=== PATIENT | female | born 1960 | race Caucasian/White ===

== ENCOUNTER → 2017-07-19 | Outpatient (CLI) | payer MEDICARE, MEDICAID ==
[~2017-07-19] MED LIST: ASPIR 8181 MG PO; CELEXA40 MG; CELEXA40 MG PO; CHANTIX1 EACH PO; CIPROFLOXACIN500 M1 PO; CLEOCIN HCL150 MG PO; CYMBALTA30 MG PO; CYMBALTA60 MG PO; DOXYCYCLINE 10100 M1 PO; DOXYCYCLINE 10100 MG PO; FLEXERIL PO; GLUCOPHAGE1000 MG; KEFLEX500 M1 PO; KLOR-CON M2020 MEQ PO; LASIX 40 MG TAB40 M2 PO; LIDODERM 5%1 PATC1 TOP; LORTAB 5 MG/5001 TA1 PO; METFORMIN 500500 MG PO; MOBIC7.5 MG PO; NEURONTIN 400400 M1; NEXIUM40 MG PO; NORCO 10-325 T1 EACH PO; PERCOCET 5-3251 EACH PO; PHENERGAN 25 MG25 M1 PO; PRILOSEC40 MG PO; PRINIVIL10 MG; PROAIR HFA8.5 GM IH; PSEUDOEPHEDRIN120 M1 PO; PYRIDIUM200 MG PO; RESTORIL15 MG PO; SIMVASTATIN40 MG; TRAMADOL 50 MG50 MG; TRAZODONE 100100 MG PO; TRAZODONE 150150 M1; XANAX 0.5 MG0.5 MG PO
== END ==
LOC: M.RAD 12:01
DX: J17 Pneumonia in diseases classified elsewhere (principal); J84.9 Interstitial pulmonary disease, unspecified; E11.8 Type 2 diabetes mellitus with unspecified complications; I45.9 Conduction disorder, unspecified; Z90.710 Acquired absence of both cervix and uterus; Z90.49 Acquired absence of other specified parts of digestive tract; Z96.641 Presence of right artificial hip joint

== ENCOUNTER 2017-09-20 19:50 | Emergency (ER) | payer MEDICARE, MEDICAID ==
[~2017-09-20] VITALS: Ht 162.6 cm; Wt 114.2 kg
[~2017-09-20 19:50] MED LIST changes: -ASPIR 8181 MG PO; -DOXYCYCLINE 10100 M1 PO; -KEFLEX500 M1 PO; -NORCO 10-325 T1 EACH PO; -PERCOCET 5-3251 EACH PO; -PSEUDOEPHEDRIN120 M1 PO
[2017-09-20] MEDS ORDERED: ASPIR 8181 MG PO (20:08)
[2017-09-20] MEDS ORDERED: NORCO 10-325 T1 EACH PO (20:09)
[2017-09-20] MEDS ORDERED: PSEUDOEPHEDRIN120 M1 PO (20:09)
[2017-09-20 20:50] LABS: ABSOLUTE BASOPHILS 0.1 thou/uL (0.0-0.2); ABSOLUTE EOSINOPHILS 0.3 thou/uL (0.0-0.7); ABSOLUTE LYMPHOCYTES 1.7 thou/uL (0.8-5.3); ABSOLUTE MONOCYTES 0.5 thou/uL (0.0-1.2); ABSOLUTE NEUTROPHILS 6.5 thou/uL (1.6-8.1); EOSINOPHILS 3.1 %; HEMATOCRIT 40.6 % (37.0-47.0); LYMPHOCYTES 18.8 %; MCHC 34.5 g/dL (28.0-37.0); MCV 92.8 fL (80.0-100.0); MONOCYTES 5.9 %; MPV 7.8 fl. (7.2-11.1); NUCLEATED RBCS 0 /100WBC; PLATELET COUNT* 302 thou/uL (150-400); POLYS 71.2 %; RBC 4.38 mil/uL (4.20-5.00); WBC 9.2 thou/uL (4.0-11.0)
[2017-09-20 21:03] LABS: CALCIUM 8.9 mg/dL (8.5-10.1); CREATININE 0.8 mg/dL (0.6-1.3); POTASSIUM 3.8 mmol/L (3.5-5.1)
[2017-09-20 21:07] LABS: TOTAL BILIRUBIN 0.2 mg/dL (<0.1-1.0); TOTAL PROTEIN 6.6 g/dL (6.4-8.2)
[2017-09-20] MEDS ORDERED: DOXYCYCLINE 10100 M1 PO (21:42)
[2017-09-20] MEDS ORDERED: KEFLEX500 M1 PO (21:44)
[2017-09-20] MEDS ORDERED: PERCOCET 5-3251 EACH PO (21:55)
[2017-09-20 22:32] VITALS: BP 103/63
== END 2017-09-20 22:33 | disposition home or self-care (01) ==
LOC: M.ERS 19:50
PROVIDERS: Nurse Practitioner Family
DX: L03.116 Cellulitis of left lower limb (principal); L03.115 Cellulitis of right lower limb; E11.9 Type 2 diabetes mellitus without complications; F17.210 Nicotine dependence, cigarettes, uncomplicated; J44.9 Chronic obstructive pulmonary disease, unspecified; Z91.040 Latex allergy status; Z90.710 Acquired absence of both cervix and uterus; Z88.1 Allergy status to other antibiotic agents; Z88.8 Allergy status to other drugs, medicaments and biological substances

== ENCOUNTER → 2017-10-07 | Outpatient (CLI) | payer MEDICARE, MEDICAID ==
[~2017-10-07] MED LIST changes: +ASPIR 8181 MG PO; +DOXYCYCLINE 10100 M1 PO; +KEFLEX500 M1 PO; +NORCO 10-325 T1 EACH PO; +PERCOCET 5-3251 EACH PO; +PSEUDOEPHEDRIN120 M1 PO
== END ==
LOC: M.NUC 10-02 08:42 → M.RAD 10-04 11:15 → M.NUC 10:15
DX: M79.604 Pain in right leg (principal); M79.605 Pain in left leg; M79.89 Other specified soft tissue disorders; E11.9 Type 2 diabetes mellitus without complications; M54.9 Dorsalgia, unspecified; F41.9 Anxiety disorder, unspecified; F33.1 Major depressive disorder, recurrent, moderate; R05 Cough; R60.0 Localized edema; Z87.891 Personal history of nicotine dependence

== ENCOUNTER 2020-02-14 11:59 | Emergency (ER) | payer MEDICARE, MEDICAID ==
[~2020-02-14] VITALS: Ht 162.6 cm; Wt 95.3 kg
[2020-02-14] MEDS ORDERED: NORCO 5-325 TA1 EAC2 PO (13:13)
[2020-02-14] MEDS ORDERED: NAPROSYN500 MG PO (13:14)
[2020-02-14 13:30] VITALS: BP 157/105
== END 2020-02-14 13:30 | disposition home or self-care (01) ==
LOC: M.ERS 11:59
DX: M25.551 Pain in right hip (principal); M25.552 Pain in left hip; M54.5 Low back pain; J44.9 Chronic obstructive pulmonary disease, unspecified; E11.9 Type 2 diabetes mellitus without complications; F17.210 Nicotine dependence, cigarettes, uncomplicated; Z91.040 Latex allergy status; Z88.2 Allergy status to sulfonamides; Z90.710 Acquired absence of both cervix and uterus; Z98.890 Other specified postprocedural states; Z90.89 Acquired absence of other organs

== ENCOUNTER 2021-02-05 18:34 | Inpatient (IN) | payer MEDICARE, MEDICAID ==
[~2021-02-05] VITALS: Ht 162.6 cm; Wt 94.8 kg
[2021-02-05 18:34] VITALS: BP 101/50
[~2021-02-05 18:34] MED LIST changes: -ASPIR 8181 MG PO; +BAYER CHEWABLE81 MG PO; -GLUCOPHAGE1000 MG; +METFORMIN HCL500 M1 PO; +NAPROSYN500 MG PO; +NORCO 5-325 TA1 EAC2 PO
[2021-02-05 19:22] LABS: HEMATOCRIT 45.9 % (37.0-47.0); HEMOGLOBIN 15.4 gm/dL (12.0-15.0); MCH 31.4 pg (26.0-34.0); MCHC 33.6 g/dL (28.0-37.0); MCV 93.5 fL (80.0-100.0); MPV 8.3 fl. (7.2-11.1); NUCLEATED RBCS 0 /100WBC; PLATELET COUNT* 117 thou/uL (150-400); RBC 4.91 mil/uL (4.20-5.00); RDW-CV 14.5 % (10.5-14.5); WBC 6.1 thou/uL (4.0-11.0)
[2021-02-05 19:29] LABS: CALCIUM 8.4 mg/dL (8.5-10.1); CREATININE 1.2 mg/dL (0.6-1.3); POTASSIUM 4.2 mmol/L (3.5-5.1)
[2021-02-05 19:39] LABS: ALBUMIN 2.5 g/dL (3.4-5.0); TOTAL BILIRUBIN 0.4 mg/dL (<0.1-1.0); TOTAL PROTEIN 6.4 g/dL (6.4-8.2)
[2021-02-05 19:50] LABS: ABSOLUTE EOSINOPHILS 0.1 thou/uL (0.0-0.7); ABSOLUTE LYMPHOCYTES 0.5 thou/uL (0.8-5.3); ABSOLUTE MONOCYTES 0.2 thou/uL (0.0-1.2); ABSOLUTE NEUTROPHILS 5.3 thou/uL (1.6-8.1); ATYPICAL LYMPHS 1 %; PLATELET ESTIMATE DECREASED
[2021-02-05 21:33] LABS: BE -4.4 mmol/L (-2 to +3); PCO2 46.5 mmHg (35.0-45.0); PO2 78.7 mmHg (75.0-100.0)
[2021-02-05 21:36] LABS: pH 7.297 (7.340-7.450)
[2021-02-05 22:50] VITALS: BP 131/80
[2021-02-06] VITALS (11 sets, daily range): BP systolic 125–147; BP diastolic 65–95
--- NOTE | 2021-02-06 10:48 | EKG ---
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: [place] : 1960 Requested By: Massimo Hudson Order Number: [id number] MD: Bassam Choudhary Measurements Intervals [place] Rate: 97 P: 36 MA: 143 QRS: 18 QRSD: 91 T: 18 QT: 397 QTc: 505 Interpretive Statements Sinus rhythm Low voltage, precordial leads Abnormal R-wave progression, early transition Prolonged QT interval Baseline wander in lead(s) II,III,aVL,aVF,V1 Compared to ECG 07/22/2014 02:15:10 Low QRS voltage now present Prolonged QT interval now present Electronically Signed On 02-06-2021 10:48:08 CDT by Bassam Choudhary [email or web address] <ELECTRONICALLY SIGNED> By: Bassam Choudhary MD, [facility] 02/06/21 1048 29 29 Bassam Choudhary MD, [facility] /EPI
[2021-02-06 12:33] LABS: ABSOLUTE LYMPHOCYTES 0.4 thou/uL (0.8-5.3); ABSOLUTE MONOCYTES 0.4 thou/uL (0.0-1.2); ABSOLUTE NEUTROPHILS 5.7 thou/uL (1.6-8.1); BASOPHILS 0.2 %; HEMOGLOBIN 14.7 gm/dL (12.0-15.0); LYMPHOCYTES 6.4 %; MCH 31.2 pg (26.0-34.0); MCHC 33.4 g/dL (28.0-37.0); MCV 93.4 fL (80.0-100.0); MONOCYTES 6.8 %; MPV 7.9 fl. (7.2-11.1); NUCLEATED RBCS 0 /100WBC; PLATELET COUNT* 124 thou/uL (150-400); POLYS 86.6 %; RBC 4.72 mil/uL (4.20-5.00); RDW-CV 14.7 % (10.5-14.5); WBC 6.6 thou/uL (4.0-11.0)
[2021-02-06 12:52] LABS: CALCIUM 7.4 mg/dL (8.5-10.1); CREATININE 0.6 mg/dL (0.6-1.3); MAGNESIUM 1.9 mg/dL (1.8-2.4); POTASSIUM 4.3 mmol/L (3.5-5.1); TOTAL BILIRUBIN 0.2 mg/dL (<0.1-1.0); TOTAL PROTEIN 5.9 g/dL (6.4-8.2)
[2021-02-06 14:07] LABS: BE -8.7 mmol/L (-2 to +3); PCO2 35.8 mmHg (35.0-45.0)
[2021-02-06 14:11] LABS: PO2 133.2 mmHg (75.0-100.0); pH 7.293 (7.340-7.450)
--- NOTE | 2021-02-06 15:31 | 2DMMODE ---
[place] [address] 2 D/M-MODE ECHOCARDIOGRAM Name: HANNAH RHODES Room: [place] [address] ADM IN R.#: [id number] Admission: 02/05/21 Attend Phys: Brock Rivas Discharge: Date of : 56 Date of Service: 02/06/21 1530 Report #: [id number] THIS REPORT FOR: cc: Madyson Stewart,Bassam Cordon MD [facility] ~ APPROVED REPORT Study performed: 02/06/2021 14:01:22 EXAM: Comprehensive 2D, Doppler, and color-flow Echocardiogram Patient Location: In-Patient Room #: ER Status: routine BSA: 2.32 HR: 58 bpm BP: 122/94 mmHg Rhythm: NSR Other Information Study Quality: Good Indications Dyspnea 2D Dimensions IVSd: 11.33 (7-11mm) LVOT Diam: 21.65 (18-24mm) LVDd: 49.03 mm PWd: 8.02 (7-11mm) Ascending Ao: 31.64 (22-36mm) LVDs: 33.92 (25-40mm) Aortic Root: 24.31 mm Volumes Left Atrial Volume (Systole) LA ESV Index: 16.10 mL/m2 Aortic Valve AoV Peak Sabas.: 1.31 m/s AO Peak Gr.: 6.84 mmHg LVOT Max P.14 mmHg AO Mean Gr.: 3.38 mmHg LVOT Mean P.48 mmHg LVOT Max V: 1.24 m/s AO V2 VTI: 25.97 cm LVOT Mean V: 0.70 m/s LOU (VTI): 3.59 cm2 LVOT V1 VTI: 25.32 [place] [address] 2 D/M-MODE ECHOCARDIOGRAM Name: HANNAH RHODES Room: [address] IN ..#: [id number] Admission: 02/05/21 Attend Phys: Brock Rivas Discharge: Date of : 56 Date of Service: 02/06/21 1530 Report #: [id number] Mitral Valve E/A Ratio: 1.17 MV Decel. Time: 203.05 ms MV E Max Sabas.: 1.16 m/s MV PHT: 58.88 ms MVA (PHT): 3.74 cm2 TDI E/Lateral E': 11.60 E/Medial E': 12.89 Medial E' Sabas.: 0.09 m/s Lateral E' Sabas.: 0.10 m/s Pulmonary Valve PV Peak Sabas.: 0.85 m/s PV Peak Gr.: 2.87 mmHg Tricuspid Valve RAP Estimate: 5.00 mmHg TR Peak Gr.: 29.18 mmHg RVSP: 34.00 mmHg PA Pressure: 34.00 mmHg Left Ventricle The left ventricle is normal size. There is normal LV segmental wall motion. There is normal left ventricular wall thickness. Left ventricular systolic function is normal. The left ventricular ejection fraction is within the normal range. LVEF is 55-60%. The left ventricular diastolic function is normal. Right Ventricle The right ventricle is normal size. The right ventricular systolic function is normal. Atria The left atrium size is normal. The right atrium size is normal. Aortic Valve The aortic valve is normal in structure. No aortic regurgitation is present. There is no aortic valvular stenosis. Mitral Valve The mitral valve is normal in structure. Trace mitral regurgitation. No evidence of mitral valve stenosis. Tricuspid Valve The tricuspid valve is normal in structure. [place] [address] 2 D/M-MODE ECHOCARDIOGRAM Name: HANNAH RHODES Room: [address] IN [facility]#: [id number] Admission: 02/05/21 Attend Phys: Brock Rivas Discharge: Date of : 56 Date of Service: 02/06/21 1530 Report #: [id number] Pulmonic Valve Pulmonic valve is not well visualized. There is no pulmonic valvular regurgitation. Great Vessels The aortic root is normal in size. IVC is normal in size and collapses >50% with inspiration. Pericardium There is no pericardial effusion. <Conclusion> Left ventricular systolic function is normal. The left ventricular ejection fraction is within the normal range. <ELECTRONICALLY SIGNED> By: Bassam Choudhary MD, FACC 02/06/21 1530 1530 1530 Bassam Choudhary MD, FACC /INF
[2021-02-06 15:40] LABS: ANION GAP 9 mmol/L (7-16); BUN 15 mg/dL (7-18); CALCIUM 7.4 mg/dL (8.5-10.1); CHLORIDE 106 mmol/L (98-107); CO2 23 mmol/L (21-32); CREATININE 0.7 mg/dL (0.6-1.3); GLUCOSE 257 mg/dL (70-99); POTASSIUM 4.4 mmol/L (3.5-5.1); SODIUM 138 mmol/L (136-145)
[2021-02-07] VITALS (24 sets, daily range): BP systolic 100–155; BP diastolic 54–82
[2021-02-07 04:48] LABS: ABSOLUTE LYMPHOCYTES 0.3 thou/uL (0.8-5.3); ABSOLUTE MONOCYTES 0.7 thou/uL (0.0-1.2); ABSOLUTE NEUTROPHILS 4.6 thou/uL (1.6-8.1); BASOPHILS 0.2 %; HEMATOCRIT 42.1 % (37.0-47.0); HEMOGLOBIN 14.2 gm/dL (12.0-15.0); LYMPHOCYTES 5.6 %; MCH 31.5 pg (26.0-34.0); MCHC 33.8 g/dL (28.0-37.0); MCV 93.2 fL (80.0-100.0); MONOCYTES 11.8 %; NUCLEATED RBCS 0 /100WBC; PLATELET COUNT* 114 thou/uL (150-400); POLYS 82.4 %; RBC 4.51 mil/uL (4.20-5.00); RDW-CV 14.5 % (10.5-14.5); WBC 5.6 thou/uL (4.0-11.0)
[2021-02-07 06:00] LABS: CALCIUM 7.8 mg/dL (8.5-10.1); CREATININE 0.8 mg/dL (0.6-1.3); MAGNESIUM 2.1 mg/dL (1.8-2.4); POTASSIUM 4.7 mmol/L (3.5-5.1); TOTAL BILIRUBIN 0.2 mg/dL (<0.1-1.0); TOTAL PROTEIN 5.6 g/dL (6.4-8.2)
[2021-02-07 12:02] LABS: BE -4.1 mmol/L (-2 to +3); PCO2 29.8 mmHg (35.0-45.0); PO2 67.3 mmHg (75.0-100.0); pH 7.421 (7.340-7.450)
--- NOTE | 2021-02-07 20:33 | CON ---
[address] [address] CONSULTATION Name: HANNAH RHODES Room: [address] IN M.R.#: [id number] Admission: 02/05/21 Attend Phys: Denise Alvarez Discharge: Date of : 56 Report #: [id number] THIS REPORT FOR: cc: Madyson Stewart,Garertt Mitchell MD ~ DATE OF CONSULTATION: 02/06/2021 REQUESTING PHYSICIAN: Dr. Clayton. INDICATION FOR CONSULTATION: Acute hypoxemic respiratory failure secondary to COVID-19. HISTORY OF PRESENT ILLNESS: A 61-year-old female who has an extensive history of smoking. She is still currently smoking. She does not carry a previous diagnosis of COPD. Also, has a body mass index of 52 and appears to me that she has underlying obstructive sleep apnea, also not previously diagnosed, now presented with increasing shortness of breath, cough and some sputum production. Details not available. Over the last week, there is mild swelling of lower extremities. There is no calf pain. The patient was markedly hypoxemic with O2 saturation in the range of 60% initially recorded. Currently, she is on a BiPAP 100% FIO2 to maintain O2 saturation, O2 saturation last recorded in the low 90s. The patient is extremely anxious and is repeatedly checking the BiPAP off. She does appear to be oxygenating adequately when BiPAP is in place. Respiratory rate, however, remains elevated. The patient is very anxious and therefore is unable to provide a further history or review of systems. PAST MEDICAL HISTORY: Morbid obesity, body mass index 52, with suspected underlying obstructive sleep apnea, spinal stenosis. She has used narcotics in the past at home prescribed to her, unknown as to whether the use is current, diabetes, tonsillectomy, , hysterectomy, heel spur, right knee surgery, carpal tunnel surgery. SOCIAL HISTORY: There is an extensive history of smoking, still smokes. ALLERGIES: ADHESIVE, LATEX AND SULFONAMIDE ANTIBIOTICS. FAMILY HISTORY: No pertinent family history. IMMUNIZATION HISTORY: The patient has not been vaccinated for COVID-19. PHYSICAL EXAMINATION: GENERAL: She is alert, awake and oriented; however, is extremely anxious. VITAL SIGNS: Has a pulse of 90 and a blood pressure 122/94. She was having respiratory rate in the mid 30s with 100% FIO2 and the BiPAP 20/10 [place] [address] CONSULTATION Name: HANNAH RHODES Room: [address] IN [facility]#: [id number] Admission: 02/05/21 Attend Phys: Denise Alvarez Discharge: Date of : 56 Report #: [id number] switched over to AVAPS mode. She is afebrile with a temperature of 36.9. HEENT: Normocephalic and atraumatic. Pupils are equal and reactive. Throat examination is limited with the BiPAP in place. NECK: Does not show raised JVP asymmetry, mass or lymph nodes. CHEST: Symmetrical expansion on inspection and palpation. On auscultation, breath sounds are significantly decreased bilaterally equal. I do not hear any added sounds. HEART: Regular, no murmur. ABDOMEN: Soft and nontender. EXTREMITIES: Lower extremities, 1+ edema, no calf tenderness. SKIN: Dry and intact. NEUROLOGIC: Moves all extremities bilaterally equally and spontaneously with no focal deficit identified. LABORATORY DATA: The patient's chest x-rays are consistent with ARDS secondary to COVID-19. ASSESSMENT AND PLAN: 1. Acute hypoxemic respiratory failure. For now, we will keep her on BiPAP. Agree with starting Precedex. Agree with obtaining a central line. Hopefully, the patient says that she can be controlled with Precedex if this is not the case that she may require endotracheal intubation bypass over to AVAPS mode. She was doing very high tidal volumes on . Therefore, I am starting with a high tidal volume of 600. We will adjust based on response. 2. COVID-19 with acute respiratory distress syndrome. She likely also has underlying chronic obstructive pulmonary disease. Therefore, we will start with a larger dose of dexamethasone, nebulized bronchodilators are also ordered. Agree with remdesivir. There are different opinions regarding whether or not convalescent plasma should also be administered. I would defer to the primary service. I recommend giving her Actemra, unfortunately Actemra currently is not available. 3. Pulmonary infiltrates. We will also continue to cover with ceftriaxone and doxycycline as currently ordered except that I increased the dose of ceftriaxone nasal swab for methicillin-resistant Staphylococcus aureus and sputum culture. 4. Morbid obesity/suspected underlying obstructive sleep apnea, see discussion above. 5. Smoker/suspected underlying chronic obstructive pulmonary disease. See discussion above. 6. History of prescribe narcotic use, not known to me whether current or not, she; however, does take alprazolam at home. 7. Deep venous thrombosis prophylaxis. I increase Lovenox to intermediate dose. The patient is too unstable to do a CTA chest. We will do venous Dopplers as well as an echo. 8. Gastrointestinal prophylaxis, Protonix. [address] [address] CONSULTATION Name: HANNAH RHODES Room: [address]#: [id number] Admission: 02/05/21 Attend Phys: Denise Alvarez Discharge: Date of : 56 Report #: [id number] 9. Clostridium difficile prophylaxis, Lactinex. The patient is critically ill at this time. Total time spent providing critical care to this patient today is 43 minutes. <ELECTRONICALLY SIGNED> By: Garrett Palmer MD 02/07/21 2033 1043 1939Adior Palmer MD /nt
[2021-02-08] VITALS (51 sets, daily range): BP systolic 115–174; BP diastolic 53–82
[2021-02-08 06:16] LABS: HEMATOCRIT 40.8 % (37.0-47.0); HEMOGLOBIN 13.9 gm/dL (12.0-15.0); MCH 31.9 pg (26.0-34.0); MCHC 34.1 g/dL (28.0-37.0); MCV 93.4 fL (80.0-100.0); NUCLEATED RBCS 0 /100WBC; PLATELET COUNT* 111 thou/uL (150-400); RBC 4.36 mil/uL (4.20-5.00); RDW-CV 14.8 % (10.5-14.5); WBC 8.9 thou/uL (4.0-11.0)
[2021-02-08 06:34] LABS: PHOSPHORUS* 2.8 mg/dL (2.5-4.9)
[2021-02-08 06:38] LABS: ALBUMIN 2.5 g/dL (3.4-5.0); CALCIUM 8.2 mg/dL (8.5-10.1); MAGNESIUM 1.9 mg/dL (1.8-2.4); POTASSIUM 3.5 mmol/L (3.5-5.1); TOTAL BILIRUBIN 0.4 mg/dL (<0.1-1.0); TOTAL PROTEIN 6.3 g/dL (6.4-8.2)
[2021-02-08 07:42] LABS: ABSOLUTE LYMPHOCYTES 0.2 thou/uL (0.8-5.3); ABSOLUTE MONOCYTES 0.2 thou/uL (0.0-1.2); ABSOLUTE NEUTROPHILS 8.5 thou/uL (1.6-8.1); PLATELET ESTIMATE ADEQUATE
[2021-02-08 08:49] LABS: BE -1.8 mmol/L (-2 to +3); pH 7.387 (7.340-7.450)
[2021-02-08 08:51] LABS: PO2 143.7 mmHg (75.0-100.0)
[2021-02-09] VITALS (34 sets, daily range): BP systolic 112–168; BP diastolic 47–67
[2021-02-09 05:36] LABS: ABSOLUTE LYMPHOCYTES 0.2 thou/uL (0.8-5.3); ABSOLUTE MONOCYTES 0.8 thou/uL (0.0-1.2); ABSOLUTE NEUTROPHILS 8.5 thou/uL (1.6-8.1); BASOPHILS 0.1 %; HEMATOCRIT 38.5 % (37.0-47.0); HEMOGLOBIN 12.8 gm/dL (12.0-15.0); MCH 31.2 pg (26.0-34.0); MCHC 33.3 g/dL (28.0-37.0); MCV 93.5 fL (80.0-100.0); MONOCYTES 8.5 %; MPV 8.4 fl. (7.2-11.1); NUCLEATED RBCS 0 /100WBC; PLATELET COUNT* 118 thou/uL (150-400); POLYS 89.4 %; RBC 4.12 mil/uL (4.20-5.00); RDW-CV 14.5 % (10.5-14.5); WBC 9.5 thou/uL (4.0-11.0)
[2021-02-09 05:51] LABS: ALBUMIN 2.6 g/dL (3.4-5.0); CALCIUM 8.6 mg/dL (8.5-10.1); CREATININE 0.7 mg/dL (0.6-1.3); MAGNESIUM 2.4 mg/dL (1.8-2.4); POTASSIUM 4.1 mmol/L (3.5-5.1); TOTAL BILIRUBIN 0.3 mg/dL (<0.1-1.0); TOTAL PROTEIN 5.8 g/dL (6.4-8.2)
[2021-02-09 06:07] LABS: PHOSPHORUS* 2.5 mg/dL (2.5-4.9)
[2021-02-09 09:29] LABS: BE -0.3 mmol/L (-2 to +3); PCO2 45.6 mmHg (35.0-45.0); PO2 72.5 mmHg (75.0-100.0); pH 7.363 (7.340-7.450)
[2021-02-09 17:22] LABS: CREATININE 0.6 mg/dL (0.6-1.3); MAGNESIUM 2.1 mg/dL (1.8-2.4); POTASSIUM 3.8 mmol/L (3.5-5.1)
[2021-02-10] VITALS (22 sets, daily range): BP systolic 92–186; BP diastolic 69–90
[2021-02-10 05:27] LABS: HEMATOCRIT 37.9 % (37.0-47.0); HEMOGLOBIN 12.6 gm/dL (12.0-15.0); MCH 30.9 pg (26.0-34.0); MCHC 33.1 g/dL (28.0-37.0); MCV 93.4 fL (80.0-100.0); MPV 8.5 fl. (7.2-11.1); RBC 4.06 mil/uL (4.20-5.00); RDW-CV 14.9 % (10.5-14.5); WBC 10.5 thou/uL (4.0-11.0)
[2021-02-10 05:33] LABS: CALCIUM 8.7 mg/dL (8.5-10.1); CREATININE 0.7 mg/dL (0.6-1.3); POTASSIUM 4.4 mmol/L (3.5-5.1)
[2021-02-10 13:18] LABS: URINE BILIRUBIN NEGATIVE (Negative); URINE BLOOD 2+ (Negative); URINE CLARITY CLEAR; URINE COLOR YELLOW; URINE GLUCOSE-RANDOM NEGATIVE (Negative); URINE KETONES NEGATIVE (Negative); URINE LEUKOCYTES-REFLEX NEGATIVE (Negative); URINE NITRITE-REFLEX NEGATIVE (Negative); URINE PROTEIN 1+ (Negative); URINE SPECIFIC GRAVITY 1.015 (1.005-1.030); URINE UROBILINOGEN 0.2 E.U./dl (0.2-1.0)
[2021-02-10 13:27] LABS: BACTERIA-REFLEX 1-9 Few /HPF (None Seen); CASTS None Seen /LPF (None Seen); CRYSTALS None Seen /LPF (None Seen); SQUAMOUS 0-3 Few /LPF (0-3); URINE RBC 3-10 Few /HPF (0-2); URINE WBC-REFLEX 0-5 Rare /HPF (0-5)
[2021-02-10 18:01] LABS: CALCIUM 8.4 mg/dL (8.5-10.1); CREATININE 0.7 mg/dL (0.6-1.3); MAGNESIUM 1.7 mg/dL (1.8-2.4); POTASSIUM 4.8 mmol/L (3.5-5.1)
[2021-02-11] VITALS (70 sets, daily range): BP systolic 108–174; BP diastolic 68–103
[2021-02-11 07:10] LABS: ABSOLUTE LYMPHOCYTES 0.3 thou/uL (0.8-5.3); ABSOLUTE MONOCYTES 0.3 thou/uL (0.0-1.2); ABSOLUTE NEUTROPHILS 10.8 thou/uL (1.6-8.1); BASOPHILS 0.2 %; HEMATOCRIT 38.9 % (37.0-47.0); HEMOGLOBIN 12.7 gm/dL (12.0-15.0); LYMPHOCYTES 2.8 %; MCH 30.6 pg (26.0-34.0); MCHC 32.7 g/dL (28.0-37.0); MCV 93.6 fL (80.0-100.0); MONOCYTES 2.5 %; MPV 8.6 fl. (7.2-11.1); NUCLEATED RBCS 0 /100WBC; PLATELET COUNT* 85 thou/uL (150-400); POLYS 94.5 %; RBC 4.16 mil/uL (4.20-5.00); RDW-CV 14.9 % (10.5-14.5); WBC 11.5 thou/uL (4.0-11.0)
[2021-02-11 07:31] LABS: ALBUMIN 2.3 g/dL (3.4-5.0); CALCIUM 8.2 mg/dL (8.5-10.1); CREATININE 0.6 mg/dL (0.6-1.3); MAGNESIUM 1.9 mg/dL (1.8-2.4); POTASSIUM 4.7 mmol/L (3.5-5.1); TOTAL BILIRUBIN 0.5 mg/dL (<0.1-1.0); TOTAL PROTEIN 5.7 g/dL (6.4-8.2)
[2021-02-11 07:52] LABS: BE 1.7 mmol/L (-2 to +3); PCO2 45.7 mmHg (35.0-45.0); PO2 79.1 mmHg (75.0-100.0); pH 7.392 (7.340-7.450)
[2021-02-12] VITALS (72 sets, daily range): BP systolic 76–248; BP diastolic 51–189
[2021-02-12 05:27] LABS: BE 1.5 mmol/L (-2 to +3); PO2 98.2 mmHg (75.0-100.0); pH 7.387 (7.340-7.450)
[2021-02-12 06:56] LABS: HEMATOCRIT 38.4 % (37.0-47.0); HEMOGLOBIN 12.7 gm/dL (12.0-15.0); MCH 30.8 pg (26.0-34.0); MCHC 33.1 g/dL (28.0-37.0); MCV 93.2 fL (80.0-100.0); NUCLEATED RBCS 0 /100WBC; PLATELET COUNT* 81 thou/uL (150-400); RBC 4.12 mil/uL (4.20-5.00); RDW-CV 14.3 % (10.5-14.5); WBC 13.3 thou/uL (4.0-11.0)
[2021-02-12 07:29] LABS: CALCIUM 8.5 mg/dL (8.5-10.1); CREATININE 0.6 mg/dL (0.6-1.3); POTASSIUM 4.8 mmol/L (3.5-5.1); TOTAL BILIRUBIN 0.5 mg/dL (<0.1-1.0); TOTAL PROTEIN 5.7 g/dL (6.4-8.2)
[2021-02-12 07:42] LABS: ABSOLUTE LYMPHOCYTES 0.4 thou/uL (0.8-5.3); ABSOLUTE MONOCYTES 0.1 thou/uL (0.0-1.2); ABSOLUTE NEUTROPHILS 12.8 thou/uL (1.6-8.1); ANISOCYTOSIS 1+; ATYPICAL LYMPHS 1 %; PLATELET ESTIMATE DECREASED; POIKILOCYTOSIS 1+
[2021-02-13] VITALS (72 sets, daily range): BP systolic 115–170; BP diastolic 52–81
[2021-02-13 04:05] LABS: ABSOLUTE LYMPHOCYTES 0.1 thou/uL (0.8-5.3); ABSOLUTE MONOCYTES 0.2 thou/uL (0.0-1.2); ABSOLUTE NEUTROPHILS 11.7 thou/uL (1.6-8.1); BASOPHILS 0.1 %; HEMATOCRIT 34.9 % (37.0-47.0); HEMOGLOBIN 11.6 gm/dL (12.0-15.0); MCH 31.2 pg (26.0-34.0); MCHC 33.3 g/dL (28.0-37.0); MCV 93.7 fL (80.0-100.0); MONOCYTES 1.8 %; MPV 9.6 fl. (7.2-11.1); NUCLEATED RBCS 0 /100WBC; PLATELET COUNT* 81 thou/uL (150-400); POLYS 97.1 %; RBC 3.73 mil/uL (4.20-5.00); RDW-CV 14.6 % (10.5-14.5)
[2021-02-13 04:27] LABS: ALBUMIN 1.9 g/dL (3.4-5.0); CALCIUM 7.7 mg/dL (8.5-10.1); CREATININE 0.5 mg/dL (0.6-1.3); MAGNESIUM 1.7 mg/dL (1.8-2.4); PHOSPHORUS* 3.5 mg/dL (2.5-4.9); POTASSIUM 4.4 mmol/L (3.5-5.1); TOTAL BILIRUBIN 0.5 mg/dL (<0.1-1.0); TOTAL PROTEIN 5.3 g/dL (6.4-8.2)
[2021-02-13 08:05] LABS: PO2 68.7 mmHg (75.0-100.0); pH 7.361 (7.340-7.450)
[2021-02-13 08:12] LABS: PCO2 57.7 mmHg (35.0-45.0)
[2021-02-14] VITALS (58 sets, daily range): BP systolic 109–167; BP diastolic 54–80
[2021-02-14 07:27] LABS: ABSOLUTE LYMPHOCYTES 0.2 thou/uL (0.8-5.3); ABSOLUTE MONOCYTES 0.3 thou/uL (0.0-1.2); ABSOLUTE NEUTROPHILS 12.4 thou/uL (1.6-8.1); HEMATOCRIT 37.3 % (37.0-47.0); HEMOGLOBIN 12.3 gm/dL (12.0-15.0); LYMPHOCYTES 1.7 %; MCH 30.9 pg (26.0-34.0); MCV 93.7 fL (80.0-100.0); MONOCYTES 2.1 %; MPV 9.5 fl. (7.2-11.1); NUCLEATED RBCS 0 /100WBC; PLATELET COUNT* 107 thou/uL (150-400); POLYS 96.2 %; RBC 3.98 mil/uL (4.20-5.00); RDW-CV 14.3 % (10.5-14.5); WBC 12.9 thou/uL (4.0-11.0)
[2021-02-14 07:29] LABS: CALCIUM 8.5 mg/dL (8.5-10.1); CREATININE 0.5 mg/dL (0.6-1.3); POTASSIUM 4.6 mmol/L (3.5-5.1)
[2021-02-15] VITALS (24 sets, daily range): BP systolic 95–149; BP diastolic 48–73
[2021-02-15 05:53] LABS: HEMATOCRIT 37.2 % (37.0-47.0); HEMOGLOBIN 12.5 gm/dL (12.0-15.0); MCH 30.9 pg (26.0-34.0); MCHC 33.5 g/dL (28.0-37.0); MCV 92.2 fL (80.0-100.0); MPV 9.1 fl. (7.2-11.1); NUCLEATED RBCS 0 /100WBC; PLATELET COUNT* 138 thou/uL (150-400); RBC 4.03 mil/uL (4.20-5.00); RDW-CV 14.2 % (10.5-14.5); WBC 15.5 thou/uL (4.0-11.0)
[2021-02-15 06:17] LABS: PHOSPHORUS* 3.7 mg/dL (2.5-4.9)
[2021-02-15 06:22] LABS: ALBUMIN 1.7 g/dL (3.4-5.0); CALCIUM 8.5 mg/dL (8.5-10.1); CREATININE 0.5 mg/dL (0.6-1.3); MAGNESIUM 1.8 mg/dL (1.8-2.4); POTASSIUM 4.2 mmol/L (3.5-5.1); TOTAL BILIRUBIN 0.8 mg/dL (<0.1-1.0); TOTAL PROTEIN 5.4 g/dL (6.4-8.2)
[2021-02-15 06:24] LABS: ABSOLUTE BASOPHILS 0.2 thou/uL (0.0-0.2); ABSOLUTE LYMPHOCYTES 0.5 thou/uL (0.8-5.3); ABSOLUTE MONOCYTES 0.2 thou/uL (0.0-1.2); ABSOLUTE NEUTROPHILS 14.7 thou/uL (1.6-8.1); METAMYELOCYTES 1 %; MYELOCYTES 1 %; PLATELET ESTIMATE ADEQUATE
[2021-02-15 09:03] LABS: BE 11.9 mmol/L (-2 to +3); PCO2 48.9 mmHg (35.0-45.0); pH 7.495 (7.340-7.450)
[2021-02-15 09:06] LABS: PO2 52.5 mmHg (75.0-100.0)
[2021-02-15 20:45] LABS: CALCIUM 8.6 mg/dL (8.5-10.1); CREATININE 0.6 mg/dL (0.6-1.3); MAGNESIUM 2.3 mg/dL (1.8-2.4); POTASSIUM 4.1 mmol/L (3.5-5.1)
[2021-02-16] VITALS (24 sets, daily range): BP systolic 97–152; BP diastolic 48–63
[2021-02-16 06:27] LABS: HEMATOCRIT 33.4 % (37.0-47.0); HEMOGLOBIN 11.1 gm/dL (12.0-15.0); MCH 31.1 pg (26.0-34.0); MCHC 33.3 g/dL (28.0-37.0); MCV 93.4 fL (80.0-100.0); MPV 9.3 fl. (7.2-11.1); RBC 3.58 mil/uL (4.20-5.00); RDW-CV 14.1 % (10.5-14.5); WBC 14.4 thou/uL (4.0-11.0)
[2021-02-16 06:52] LABS: CALCIUM 8.6 mg/dL (8.5-10.1); CREATININE 0.6 mg/dL (0.6-1.3); POTASSIUM 3.9 mmol/L (3.5-5.1)
[2021-02-17] VITALS (30 sets, daily range): BP systolic 104–157; BP diastolic 50–73
[2021-02-17 04:26] LABS: ABSOLUTE LYMPHOCYTES 0.3 thou/uL (0.8-5.3); ABSOLUTE MONOCYTES 0.6 thou/uL (0.0-1.2); ABSOLUTE NEUTROPHILS 15.5 thou/uL (1.6-8.1); BASOPHILS 0.2 %; EOSINOPHILS 0.1 %; HEMATOCRIT 32.8 % (37.0-47.0); HEMOGLOBIN 11.2 gm/dL (12.0-15.0); LYMPHOCYTES 2.1 %; MCH 31.6 pg (26.0-34.0); MCV 92.9 fL (80.0-100.0); MONOCYTES 3.4 %; MPV 8.6 fl. (7.2-11.1); NUCLEATED RBCS 0 /100WBC; PLATELET COUNT* 177 thou/uL (150-400); POLYS 94.2 %; RBC 3.53 mil/uL (4.20-5.00); RDW-CV 13.8 % (10.5-14.5); WBC 16.5 thou/uL (4.0-11.0)
[2021-02-17 05:08] LABS: ALBUMIN 2.7 g/dL (3.4-5.0); CALCIUM 9.1 mg/dL (8.5-10.1); CREATININE 0.6 mg/dL (0.6-1.3); MAGNESIUM 1.9 mg/dL (1.8-2.4); POTASSIUM 4.3 mmol/L (3.5-5.1); TOTAL BILIRUBIN 0.9 mg/dL (<0.1-1.0); TOTAL PROTEIN 6.3 g/dL (6.4-8.2)
[2021-02-17 08:39] LABS: BE 3.4 mmol/L (-2 to +3); PCO2 43.4 mmHg (35.0-45.0); PO2 74.5 mmHg (75.0-100.0)
[2021-02-18] VITALS (96 sets, daily range): BP systolic 96–154; BP diastolic 52–81
[2021-02-18 04:07] LABS: HEMATOCRIT 33.1 % (37.0-47.0); HEMOGLOBIN 11.3 gm/dL (12.0-15.0); MCH 31.6 pg (26.0-34.0); MCV 92.8 fL (80.0-100.0); MPV 8.5 fl. (7.2-11.1); RBC 3.57 mil/uL (4.20-5.00); RDW-CV 14.2 % (10.5-14.5); WBC 17.9 thou/uL (4.0-11.0)
[2021-02-18 04:11] LABS: ALBUMIN 2.5 g/dL (3.4-5.0); CALCIUM 8.9 mg/dL (8.5-10.1); CREATININE 0.6 mg/dL (0.6-1.3); POTASSIUM 4.1 mmol/L (3.5-5.1); TOTAL BILIRUBIN 1.6 mg/dL (<0.1-1.0); TOTAL PROTEIN 6.2 g/dL (6.4-8.2)
[2021-02-18 04:27] LABS: HEMATOCRIT 33.6 % (37.0-47.0); HEMOGLOBIN 11.3 gm/dL (12.0-15.0); MCH 31.3 pg (26.0-34.0); MCHC 33.5 g/dL (28.0-37.0); MCV 93.4 fL (80.0-100.0); MPV 8.9 fl. (7.2-11.1); NUCLEATED RBCS 0 /100WBC; PLATELET COUNT* 214 thou/uL (150-400); RDW-CV 13.8 % (10.5-14.5); WBC 18.5 thou/uL (4.0-11.0)
[2021-02-18 06:49] LABS: ABSOLUTE EOSINOPHILS 0.4 thou/uL (0.0-0.7); ABSOLUTE LYMPHOCYTES 0.2 thou/uL (0.8-5.3); ABSOLUTE MONOCYTES 0.6 thou/uL (0.0-1.2); ABSOLUTE NEUTROPHILS 17.4 thou/uL (1.6-8.1)
[2021-02-18 06:50] LABS: PLATELET ESTIMATE ADEQUATE
[2021-02-18 08:41] LABS: BE 3.1 mmol/L (-2 to +3); PCO2 39.6 mmHg (35.0-45.0); PO2 61.7 mmHg (75.0-100.0); pH 7.454 (7.340-7.450)
[2021-02-19] VITALS (89 sets, daily range): BP systolic 119–158; BP diastolic 58–83
[2021-02-20] VITALS (32 sets, daily range): BP systolic 114–163; BP diastolic 55–85
[2021-02-20 09:30] LABS: BE 5.3 mmol/L (-2 to +3); PCO2 42.9 mmHg (35.0-45.0); PO2 64.8 mmHg (75.0-100.0); pH 7.458 (7.340-7.450)
[2021-02-20 10:38] LABS: ABSOLUTE LYMPHOCYTES 0.3 thou/uL (0.8-5.3); HEMOGLOBIN 11.3 gm/dL (12.0-15.0); NUCLEATED RBCS 0 /100WBC
[2021-02-20 10:40] LABS: ABSOLUTE BASOPHILS 0.1 thou/uL (0.0-0.2); ABSOLUTE MONOCYTES 0.9 thou/uL (0.0-1.2); ABSOLUTE NEUTROPHILS 13.6 thou/uL (1.6-8.1); BASOPHILS 0.6 %; HEMATOCRIT 34.2 % (37.0-47.0); MCH 30.8 pg (26.0-34.0); MCHC 32.9 g/dL (28.0-37.0); MCV 93.6 fL (80.0-100.0); MONOCYTES 6.3 %; MPV 8.2 fl. (7.2-11.1); PLATELET COUNT* 238 thou/uL (150-400); POLYS 91.1 %; RBC 3.66 mil/uL (4.20-5.00); WBC 14.9 thou/uL (4.0-11.0)
[2021-02-20 11:04] LABS: ALBUMIN 2.2 g/dL (3.4-5.0); CALCIUM 8.9 mg/dL (8.5-10.1); CREATININE 0.6 mg/dL (0.6-1.3); POTASSIUM 4.5 mmol/L (3.5-5.1); TOTAL BILIRUBIN 0.5 mg/dL (<0.1-1.0); TOTAL PROTEIN 5.5 g/dL (6.4-8.2)
[2021-02-21] VITALS (24 sets, daily range): BP systolic 116–151; BP diastolic 52–69
[2021-02-21 04:56] LABS: ABSOLUTE LYMPHOCYTES 0.4 thou/uL (0.8-5.3); ABSOLUTE MONOCYTES 0.9 thou/uL (0.0-1.2); ABSOLUTE NEUTROPHILS 13.6 thou/uL (1.6-8.1); BASOPHILS 0.2 %; HEMATOCRIT 31.5 % (37.0-47.0); HEMOGLOBIN 10.6 gm/dL (12.0-15.0); LYMPHOCYTES 2.5 %; MCH 31.7 pg (26.0-34.0); MCHC 33.5 g/dL (28.0-37.0); MCV 94.5 fL (80.0-100.0); MONOCYTES 6.2 %; MPV 8.6 fl. (7.2-11.1); NUCLEATED RBCS 0 /100WBC; PLATELET COUNT* 222 thou/uL (150-400); POLYS 91.1 %; RBC 3.33 mil/uL (4.20-5.00); RDW-CV 14.2 % (10.5-14.5)
[2021-02-21 09:06] LABS: BE 2.2 mmol/L (-2 to +3); PCO2 42.7 mmHg (35.0-45.0); PO2 72.2 mmHg (75.0-100.0); pH 7.419 (7.340-7.450)
[2021-02-21 13:30] LABS: ALBUMIN 2.4 g/dL (3.4-5.0); CALCIUM 8.4 mg/dL (8.5-10.1); CREATININE 0.8 mg/dL (0.6-1.3); MAGNESIUM 1.9 mg/dL (1.8-2.4); POTASSIUM 3.6 mmol/L (3.5-5.1); TOTAL BILIRUBIN 0.5 mg/dL (<0.1-1.0); TOTAL PROTEIN 5.8 g/dL (6.4-8.2)
[2021-02-22] VITALS (24 sets, daily range): BP systolic 118–157; BP diastolic 57–71
[2021-02-22 07:32] LABS: HEMATOCRIT 31.5 % (37.0-47.0); HEMOGLOBIN 10.6 gm/dL (12.0-15.0); MCH 31.7 pg (26.0-34.0); MCHC 33.5 g/dL (28.0-37.0); MCV 94.7 fL (80.0-100.0); MPV 8.7 fl. (7.2-11.1); RBC 3.33 mil/uL (4.20-5.00); RDW-CV 14.7 % (10.5-14.5); WBC 12.4 thou/uL (4.0-11.0)
[2021-02-22 07:41] LABS: ALBUMIN 2.4 g/dL (3.4-5.0); CALCIUM 8.5 mg/dL (8.5-10.1); CREATININE 0.6 mg/dL (0.6-1.3); MAGNESIUM 2.3 mg/dL (1.8-2.4); POTASSIUM 4.1 mmol/L (3.5-5.1); TOTAL BILIRUBIN 0.4 mg/dL (<0.1-1.0); TOTAL PROTEIN 5.3 g/dL (6.4-8.2)
[2021-02-22 17:48] LABS: CREATININE 0.7 mg/dL (0.6-1.3); MAGNESIUM 2.1 mg/dL (1.8-2.4)
[2021-02-23] VITALS (22 sets, daily range): BP systolic 118–151; BP diastolic 50–64
[2021-02-23 04:32] LABS: HEMOGLOBIN 10.7 gm/dL (12.0-15.0); MCH 31.1 pg (26.0-34.0); MCHC 33.5 g/dL (28.0-37.0); MCV 92.9 fL (80.0-100.0); MPV 8.3 fl. (7.2-11.1); NUCLEATED RBCS 0 /100WBC; PLATELET COUNT* 188 thou/uL (150-400); RBC 3.44 mil/uL (4.20-5.00); WBC 12.4 thou/uL (4.0-11.0)
[2021-02-23 04:47] LABS: PHOSPHORUS* 3.5 mg/dL (2.5-4.9)
[2021-02-23 04:48] LABS: ALBUMIN 2.8 g/dL (3.4-5.0); CALCIUM 8.7 mg/dL (8.5-10.1); CREATININE 0.6 mg/dL (0.6-1.3); POTASSIUM 4.1 mmol/L (3.5-5.1); TOTAL BILIRUBIN 0.5 mg/dL (<0.1-1.0); TOTAL PROTEIN 5.9 g/dL (6.4-8.2)
[2021-02-23 05:56] LABS: ABSOLUTE LYMPHOCYTES 0.1 thou/uL (0.8-5.3); ABSOLUTE MONOCYTES 0.5 thou/uL (0.0-1.2); ABSOLUTE NEUTROPHILS 11.8 thou/uL (1.6-8.1); ANISOCYTOSIS 1+; PLATELET ESTIMATE ADEQUATE; POIKILOCYTOSIS 1+
[2021-02-23 09:05] LABS: BE 2.6 mmol/L (-2 to +3); PO2 74.1 mmHg (75.0-100.0); pH 7.422 (7.340-7.450)
[2021-02-23 15:02] LABS: URINE BILIRUBIN NEGATIVE (Negative); URINE BLOOD 1+ (Negative); URINE CLARITY CLEAR; URINE COLOR YELLOW; URINE GLUCOSE-RANDOM NEGATIVE (Negative); URINE KETONES NEGATIVE (Negative); URINE LEUKOCYTES-REFLEX NEGATIVE (Negative); URINE NITRITE-REFLEX NEGATIVE (Negative); URINE PROTEIN NEGATIVE (Negative); URINE UROBILINOGEN 0.2 E.U./dl (0.2-1.0)
[2021-02-23 15:12] LABS: SQUAMOUS >10 Many /LPF (0-3)
[2021-02-23 15:13] LABS: BACTERIA-REFLEX 1-9 Few /HPF (None Seen); CRYSTALS None Seen /LPF (None Seen); HYALINE CASTS >10 Many /LPF (None Seen); MUCUS 4-6 Moderate strn/LPF (None Seen); URINE RBC 3-10 Few /HPF (0-2)
[2021-02-23 15:14] LABS: URINE WBC-REFLEX 0-5 Rare /HPF (0-5)
[2021-02-23 16:01] LABS: BE 5.1 mmol/L (-2 to +3); PCO2 38.1 mmHg (35.0-45.0); pH 7.493 (7.340-7.450)
[2021-02-23 17:10] LABS: CALCIUM 9.2 mg/dL (8.5-10.1); CREATININE 0.7 mg/dL (0.6-1.3); MAGNESIUM 1.9 mg/dL (1.8-2.4); POTASSIUM 3.8 mmol/L (3.5-5.1)
[2021-02-24] VITALS (59 sets, daily range): BP systolic 103–163; BP diastolic 49–76
[2021-02-24 03:54] LABS: ABSOLUTE LYMPHOCYTES 0.2 thou/uL (0.8-5.3); ABSOLUTE MONOCYTES 0.6 thou/uL (0.0-1.2); ABSOLUTE NEUTROPHILS 13.5 thou/uL (1.6-8.1); BASOPHILS 0.1 %; HEMATOCRIT 30.1 % (37.0-47.0); HEMOGLOBIN 10.2 gm/dL (12.0-15.0); LYMPHOCYTES 1.5 %; MCH 31.7 pg (26.0-34.0); MCV 93.2 fL (80.0-100.0); MONOCYTES 3.9 %; MPV 8.6 fl. (7.2-11.1); NUCLEATED RBCS 0 /100WBC; PLATELET COUNT* 204 thou/uL (150-400); POLYS 94.5 %; RBC 3.23 mil/uL (4.20-5.00); RDW-CV 14.1 % (10.5-14.5); WBC 14.3 thou/uL (4.0-11.0)
[2021-02-24 04:26] LABS: ALBUMIN 3.4 g/dL (3.4-5.0); CALCIUM 9.2 mg/dL (8.5-10.1); CREATININE 0.7 mg/dL (0.6-1.3); MAGNESIUM 1.9 mg/dL (1.8-2.4); POTASSIUM 4.5 mmol/L (3.5-5.1); TOTAL BILIRUBIN 0.6 mg/dL (<0.1-1.0); TOTAL PROTEIN 6.3 g/dL (6.4-8.2)
[2021-02-24 18:50] LABS: CREATININE 0.7 mg/dL (0.6-1.3); MAGNESIUM 2.2 mg/dL (1.8-2.4); POTASSIUM 3.7 mmol/L (3.5-5.1)
[2021-02-25] VITALS (32 sets, daily range): BP systolic 102–154; BP diastolic 51–74
[2021-02-25 06:16] LABS: ABSOLUTE BASOPHILS 0.1 thou/uL (0.0-0.2); ABSOLUTE LYMPHOCYTES 0.3 thou/uL (0.8-5.3); ABSOLUTE MONOCYTES 0.6 thou/uL (0.0-1.2); ABSOLUTE NEUTROPHILS 15.2 thou/uL (1.6-8.1); BASOPHILS 0.3 %; HEMATOCRIT 32.4 % (37.0-47.0); HEMOGLOBIN 10.8 gm/dL (12.0-15.0); LYMPHOCYTES 1.6 %; MCH 31.3 pg (26.0-34.0); MCHC 33.3 g/dL (28.0-37.0); MONOCYTES 3.7 %; MPV 8.6 fl. (7.2-11.1); NUCLEATED RBCS 0 /100WBC; PLATELET COUNT* 233 thou/uL (150-400); POLYS 94.4 %; RBC 3.45 mil/uL (4.20-5.00); RDW-CV 13.8 % (10.5-14.5); WBC 16.1 thou/uL (4.0-11.0)
[2021-02-25 06:33] LABS: ALBUMIN 3.1 g/dL (3.4-5.0); CALCIUM 8.6 mg/dL (8.5-10.1); CREATININE 0.6 mg/dL (0.6-1.3); POTASSIUM 4.2 mmol/L (3.5-5.1); TOTAL BILIRUBIN 0.6 mg/dL (<0.1-1.0)
[2021-02-25 06:36] LABS: LIPASE 374 U/L (73-393); TRIGLYCERIDE 225 mg/dL (<150)
[2021-02-25 09:37] LABS: BE 6.7 mmol/L (-2 to +3); PCO2 44.8 mmHg (35.0-45.0); pH 7.462 (7.340-7.450)
[2021-02-25 13:48] LABS: BE 7.3 mmol/L (-2 to +3); PCO2 38.5 mmHg (35.0-45.0); PO2 66.2 mmHg (75.0-100.0); pH 7.519 (7.340-7.450)
[2021-02-26] VITALS (42 sets, daily range): BP systolic 106–159; BP diastolic 58–82
[2021-02-26 06:52] LABS: HEMATOCRIT 46.6 % (37.0-47.0); MCV 90.9 fL (80.0-100.0); MPV 10.3 fl. (7.2-11.1); NUCLEATED RBCS 0 /100WBC; PLATELET COUNT* 201 thou/uL (150-400); RBC 5.13 mil/uL (4.20-5.00); RDW-CV 13.2 % (10.5-14.5)
[2021-02-26 07:06] LABS: HEMOGLOBIN 15.4 gm/dL (12.0-15.0); WBC 35.8 thou/uL (4.0-11.0)
[2021-02-26 07:26] LABS: ALBUMIN 3.2 g/dL (3.4-5.0); CALCIUM 9.2 mg/dL (8.5-10.1); CREATININE 0.5 mg/dL (0.6-1.3); POTASSIUM 3.6 mmol/L (3.5-5.1); TOTAL BILIRUBIN 0.8 mg/dL (<0.1-1.0); TOTAL PROTEIN 6.3 g/dL (6.4-8.2)
[2021-02-26 07:41] LABS: ABSOLUTE LYMPHOCYTES 0.4 thou/uL (0.8-5.3); ABSOLUTE MONOCYTES 1.1 thou/uL (0.0-1.2); ABSOLUTE NEUTROPHILS 34.4 thou/uL (1.6-8.1); PLATELET ESTIMATE ADEQUATE
[2021-02-26 14:32] LABS: BE 7.9 mmol/L (-2 to +3); PCO2 32.7 mmHg (35.0-45.0); pH 7.577 (7.340-7.450)
[2021-02-26 14:36] LABS: PO2 51.8 mmHg (75.0-100.0)
[2021-02-27] VITALS (51 sets, daily range): BP systolic 89–145; BP diastolic 36–82
[2021-02-27 05:45] LABS: ABSOLUTE BASOPHILS 0.1 thou/uL (0.0-0.2); ABSOLUTE EOSINOPHILS 0.1 thou/uL (0.0-0.7); ABSOLUTE LYMPHOCYTES 0.8 thou/uL (0.8-5.3); ABSOLUTE NEUTROPHILS 21.4 thou/uL (1.6-8.1); BASOPHILS 0.2 %; EOSINOPHILS 0.4 %; HEMATOCRIT 37.5 % (37.0-47.0); LYMPHOCYTES 3.4 %; MCH 31.5 pg (26.0-34.0); MCHC 33.6 g/dL (28.0-37.0); MCV 93.7 fL (80.0-100.0); MONOCYTES 4.4 %; MPV 8.5 fl. (7.2-11.1); NUCLEATED RBCS 0 /100WBC; POLYS 91.6 %; RDW-CV 14.2 % (10.5-14.5); WBC 23.3 thou/uL (4.0-11.0)
[2021-02-27 05:50] LABS: HEMOGLOBIN 12.6 gm/dL (12.0-15.0); PLATELET COUNT* 327 thou/uL (150-400)
[2021-02-27 06:04] LABS: PHOSPHORUS* 3.1 mg/dL (2.5-4.9)
[2021-02-27 06:18] LABS: ALBUMIN 3.5 g/dL (3.4-5.0); CALCIUM 9.4 mg/dL (8.5-10.1); CREATININE 0.7 mg/dL (0.6-1.3); MAGNESIUM 1.9 mg/dL (1.8-2.4); POTASSIUM 3.9 mmol/L (3.5-5.1); TOTAL PROTEIN 6.3 g/dL (6.4-8.2)
--- NOTE | 2021-02-27 17:31 | 2DMMODE ---
[facility] [address] [place] [address] 2 D/M-MODE ECHOCARDIOGRAM Name: HANNAH RHODES Room: 008-P ADM IN .R.#: [id number] Admission: 02/05/21 Attend Phys: Brock Rivas Discharge: Date of : 56 Date of Service: 02/27/21 1730 Report #: [id number] THIS REPORT FOR: cc: Madyson Stewart,Ashwin Richards MD [facility] ~ APPROVED REPORT Study performed: 02/27/2021 13:45:53 EXAM: Limited 2D Echocardiogram Patient Location: In-Patient Room #: 008 Status: routine BSA: 1.99 HR: 112 bpm BP: 140/76 mmHg Rhythm: NSR Indications RECHECK PA PRESSURE AND LVEF Left Ventricle The left ventricle is normal size. There is normal LV segmental wall motion. Mild concentric left ventricular hypertrophy. The left ventricular systolic function is normal. The left ventricular ejection fraction is within the normal range. LVEF is 60-65%. Right Ventricle The right ventricle is normal size. The right ventricular systolic function is normal. Atria The left atrium size is normal. The right atrium size is normal. Aortic Valve The aortic valve is normal in structure. Mitral Valve The mitral valve is normal in structure. Tricuspid Valve The tricuspid valve is normal in structure. Unable to assess PA pressure. [place] [address] 2 D/M-MODE ECHOCARDIOGRAM Name: HANNAH RHODES Room: [address] IN .R.#: [id number] Admission: 02/05/21 Attend Phys: Brock Rivas Discharge: Date of : 56 Date of Service: 02/27/211729 Report #: [id number] Great Vessels The aortic root is normal in size. IVC is normal in size and collapses >50% with inspiration. Pericardium There is no pericardial effusion. <Conclusion> The left ventricle is normal size. Mild concentric left ventricular hypertrophy. The left ventricular systolic function is normal. The left ventricular ejection fraction is within the normal range. LVEF is 60-65%. The right ventricle is normal size. The left atrium size is normal. The aortic valve is normal in structure. The mitral valve is normal in structure. The tricuspid valve is normal in structure. IVC is normal in size and collapses >50% with inspiration. There is no pericardial effusion. There is normal LV segmental wall motion. <ELECTRONICALLY SIGNED> By: Ashwin Hickman MD, [facility] 02/27/211729 29 1730 Ashwin Hickman MD, FACC /INF
[2021-02-28] VITALS (48 sets, daily range): BP systolic 79–129; BP diastolic 46–73
[2021-02-28 06:15] LABS: ABSOLUTE BASOPHILS 0.1 thou/uL (0.0-0.2); ABSOLUTE LYMPHOCYTES 0.4 thou/uL (0.8-5.3); ABSOLUTE MONOCYTES 0.6 thou/uL (0.0-1.2); ABSOLUTE NEUTROPHILS 12.7 thou/uL (1.6-8.1); BASOPHILS 0.4 %; EOSINOPHILS 0.1 %; HEMATOCRIT 33.5 % (37.0-47.0); HEMOGLOBIN 11.1 gm/dL (12.0-15.0); LYMPHOCYTES 2.6 %; MCH 32.1 pg (26.0-34.0); MCHC 33.3 g/dL (28.0-37.0); MCV 96.4 fL (80.0-100.0); MONOCYTES 4.4 %; MPV 8.3 fl. (7.2-11.1); NUCLEATED RBCS 0 /100WBC; POLYS 92.5 %; RBC 3.47 mil/uL (4.20-5.00); RDW-CV 15.1 % (10.5-14.5); WBC 13.7 thou/uL (4.0-11.0)
[2021-02-28 06:17] LABS: PLATELET COUNT* 211 thou/uL (150-400)
[2021-02-28 06:51] LABS: PHOSPHORUS* 3.8 mg/dL (2.5-4.9)
[2021-02-28 06:52] LABS: ALBUMIN 3.1 g/dL (3.4-5.0); CALCIUM 9.2 mg/dL (8.5-10.1); CREATININE 0.6 mg/dL (0.6-1.3); MAGNESIUM 2.7 mg/dL (1.8-2.4); POTASSIUM 3.9 mmol/L (3.5-5.1); TOTAL BILIRUBIN 0.7 mg/dL (<0.1-1.0); TOTAL PROTEIN 6.2 g/dL (6.4-8.2)
[2021-02-28 18:42] LABS: CALCIUM 9.4 mg/dL (8.5-10.1); CREATININE 0.7 mg/dL (0.6-1.3); MAGNESIUM 2.6 mg/dL (1.8-2.4); POTASSIUM 4.2 mmol/L (3.5-5.1)
[2021-03-01] VITALS (48 sets, daily range): BP systolic 80–132; BP diastolic 36–78
[2021-03-01 05:39] LABS: ABSOLUTE EOSINOPHILS 0.1 thou/uL (0.0-0.7); ABSOLUTE LYMPHOCYTES 0.7 thou/uL (0.8-5.3); ABSOLUTE MONOCYTES 0.7 thou/uL (0.0-1.2); ABSOLUTE NEUTROPHILS 12.4 thou/uL (1.6-8.1); BASOPHILS 0.2 %; HEMATOCRIT 32.7 % (37.0-47.0); HEMOGLOBIN 10.9 gm/dL (12.0-15.0); LYMPHOCYTES 5.1 %; MCH 31.8 pg (26.0-34.0); MCHC 33.2 g/dL (28.0-37.0); MCV 95.8 fL (80.0-100.0); MONOCYTES 4.7 %; MPV 8.1 fl. (7.2-11.1); NUCLEATED RBCS 0 /100WBC; PLATELET COUNT* 199 thou/uL (150-400); RBC 3.41 mil/uL (4.20-5.00); RDW-CV 14.6 % (10.5-14.5); WBC 13.9 thou/uL (4.0-11.0)
[2021-03-01 05:52] LABS: PHOSPHORUS* 3.4 mg/dL (2.5-4.9)
[2021-03-01 05:54] LABS: ALBUMIN 3.4 g/dL (3.4-5.0); CALCIUM 9.1 mg/dL (8.5-10.1); CREATININE 0.7 mg/dL (0.6-1.3); MAGNESIUM 2.5 mg/dL (1.8-2.4); POTASSIUM 4.2 mmol/L (3.5-5.1); TOTAL BILIRUBIN 0.6 mg/dL (<0.1-1.0); TOTAL PROTEIN 6.1 g/dL (6.4-8.2)
[2021-03-02] VITALS (29 sets, daily range): BP systolic 99–133; BP diastolic 45–78
[2021-03-02 06:09] LABS: HEMATOCRIT 33.9 % (37.0-47.0); HEMOGLOBIN 11.3 gm/dL (12.0-15.0); MCH 31.9 pg (26.0-34.0); MCHC 33.4 g/dL (28.0-37.0); MCV 95.5 fL (80.0-100.0); MPV 8.2 fl. (7.2-11.1); NUCLEATED RBCS 0 /100WBC; PLATELET COUNT* 166 thou/uL (150-400); RBC 3.55 mil/uL (4.20-5.00); RDW-CV 14.6 % (10.5-14.5); WBC 14.2 thou/uL (4.0-11.0)
[2021-03-02 06:32] LABS: PHOSPHORUS* 2.6 mg/dL (2.5-4.9)
[2021-03-02 06:36] LABS: ALBUMIN 3.1 g/dL (3.4-5.0); CALCIUM 8.4 mg/dL (8.5-10.1); CREATININE 0.7 mg/dL (0.6-1.3); MAGNESIUM 1.9 mg/dL (1.8-2.4); POTASSIUM 4.1 mmol/L (3.5-5.1); TOTAL BILIRUBIN 0.7 mg/dL (<0.1-1.0); TOTAL PROTEIN 5.3 g/dL (6.4-8.2)
[2021-03-02 07:32] LABS: ABSOLUTE LYMPHOCYTES 0.6 thou/uL (0.8-5.3); ABSOLUTE NEUTROPHILS 13.6 thou/uL (1.6-8.1); PLATELET ESTIMATE ADEQUATE
[2021-03-02] MEDS ORDERED: DECADRON6 MG PO (13:23)
[2021-03-02] MEDS ORDERED: XANAX 0.5 MG0.5 MG PO (13:23)
[2021-03-02] MEDS ORDERED: PULMICORT0.5 MG/2 M INH (13:23)
[2021-03-02] MEDS ORDERED: DOCUSATE S50 MG/5 ML PO (13:23)
== END 2021-03-02 15:25 | DRG 870 ==
LOC: M.ERS 18:34 → M.ORTHSURG 18:56 → M.TBA-ER 18:56 → M.ORTHSURG 02-06 17:45 → M.ICU 02-08 06:55
PROVIDERS: Emergency Medicine; Family Medicine; Internal Medicine; Internal Medicine Critical Care Medicine; Pediatrics; ADMIT Internal Medicine; ATTEND Internal Medicine
PROC: 5A09357 Assistance with Respiratory Ventilation, Less than 24 Consecutive Hours, Continuous Positive Airway Pressure (ICD-10-PCS; principal; 2021-02-05)
PROC: XW033E5 Introduction of Remdesivir Anti-infective into Peripheral Vein, Percutaneous Approach, New Technology Group 5 (ICD-10-PCS; 2021-02-06)
PROC: 5A1955Z Respiratory Ventilation, Greater than 96 Consecutive Hours (ICD-10-PCS; 2021-02-06)
PROC: 0BH17EZ Insertion of Endotracheal Airway into Trachea, Via Natural or Artificial Opening (ICD-10-PCS; 2021-02-06)
PROC: 02H633Z Insertion of Infusion Device into Right Atrium, Percutaneous Approach (ICD-10-PCS; 2021-02-06)
PROC: XW13325 Transfusion of Convalescent Plasma (Nonautologous) into Peripheral Vein, Percutaneous Approach, New Technology Group 5 (ICD-10-PCS; 2021-02-08)
PROC: 5A0935A Assistance with Respiratory Ventilation, Less than 24 Consecutive Hours, High Flow/Velocity Cannula (ICD-10-PCS; 2021-02-25)
PROC: 5A0935A Assistance with Respiratory Ventilation, Less than 24 Consecutive Hours, High Flow/Velocity Cannula (ICD-10-PCS; 2021-02-26)
PROC: 5A09357 Assistance with Respiratory Ventilation, Less than 24 Consecutive Hours, Continuous Positive Airway Pressure (ICD-10-PCS; 2021-02-26)
PROC: 5A0935A Assistance with Respiratory Ventilation, Less than 24 Consecutive Hours, High Flow/Velocity Cannula (ICD-10-PCS; 2021-02-27)
PROC: 5A09357 Assistance with Respiratory Ventilation, Less than 24 Consecutive Hours, Continuous Positive Airway Pressure (ICD-10-PCS; 2021-02-27)
PROC: 5A09357 Assistance with Respiratory Ventilation, Less than 24 Consecutive Hours, Continuous Positive Airway Pressure (ICD-10-PCS; 2021-02-28)
PROC: 5A0935A Assistance with Respiratory Ventilation, Less than 24 Consecutive Hours, High Flow/Velocity Cannula (ICD-10-PCS; 2021-02-28)
PROC: 5A09357 Assistance with Respiratory Ventilation, Less than 24 Consecutive Hours, Continuous Positive Airway Pressure (ICD-10-PCS; 2021-03-01)
PROC: 5A0935A Assistance with Respiratory Ventilation, Less than 24 Consecutive Hours, High Flow/Velocity Cannula (ICD-10-PCS; 2021-03-01)
PROC: 5A0935A Assistance with Respiratory Ventilation, Less than 24 Consecutive Hours, High Flow/Velocity Cannula (ICD-10-PCS; 2021-03-02)
PROC: 5A09357 Assistance with Respiratory Ventilation, Less than 24 Consecutive Hours, Continuous Positive Airway Pressure (ICD-10-PCS; 2021-03-02)
DX: A41.89 Other specified sepsis (principal); U07.1 COVID-19; J80 Acute respiratory distress syndrome; J12.82 Pneumonia due to coronavirus disease 2019; J44.0 Chronic obstructive pulmonary disease with (acute) lower respiratory infection; J44.1 Chronic obstructive pulmonary disease with (acute) exacerbation; E87.0 Hyperosmolality and hypernatremia; E46 Unspecified protein-calorie malnutrition; B44.9 Aspergillosis, unspecified; E11.9 Type 2 diabetes mellitus without complications; E66.01 Morbid (severe) obesity due to excess calories; F17.210 Nicotine dependence, cigarettes, uncomplicated; G47.33 Obstructive sleep apnea (adult) (pediatric); Z90.710 Acquired absence of both cervix and uterus; Z68.35 Body mass index [BMI] 35.0-35.9, adult; Z88.2 Allergy status to sulfonamides; Z88.8 Allergy status to other drugs, medicaments and biological substances; Z91.040 Latex allergy status

== ENCOUNTER 2021-03-31 06:11 | Inpatient (IN) | payer MEDICARE, MEDICAID ==
[~2021-03-31] VITALS: Ht 160 cm; Wt 78.6 kg
[~2021-03-31 06:11] MED LIST changes: +DECADRON6 MG PO; +DOCUSATE S50 MG/5 ML PO; +PULMICORT0.5 MG/2 M INH
[2021-03-31] MEDS ORDERED: ACETAMINOPHEN (06:33)
[2021-03-31] MEDS ORDERED: ALBUTEROL (06:33)
[2021-03-31] MEDS ORDERED: ENOXAPARIN60 MG/0.1 (06:34)
[2021-03-31] MEDS ORDERED: NEURONTIN 300M300 M2 (06:34)
[2021-03-31] MEDS ORDERED: NOVOLOG100 UNIT/1 (06:35)
[2021-03-31] MEDS ORDERED: ONDANSETRON ODT4 MG (06:36)
[2021-03-31] MEDS ORDERED: SENNA8.6 MG (06:37)
[2021-03-31] MEDS ORDERED: VFEND200 MG (06:37)
[2021-03-31 06:43] LABS: ABSOLUTE BASOPHILS 0.1 thou/uL (0.0-0.2); ABSOLUTE EOSINOPHILS 0.3 thou/uL (0.0-0.7); ABSOLUTE MONOCYTES 0.7 thou/uL (0.0-1.2); ABSOLUTE NEUTROPHILS 8.5 thou/uL (1.6-8.1); BASOPHILS 0.9 %; EOSINOPHILS 3.1 %; LYMPHOCYTES 9.8 %; MCH 32.8 pg (26.0-34.0); MCHC 33.3 g/dL (28.0-37.0); MCV 98.4 fL (80.0-100.0); MONOCYTES 6.3 %; MPV 7.7 fl. (7.2-11.1); NUCLEATED RBCS 1 /100WBC; PLATELET COUNT* 386 thou/uL (150-400); POLYS 79.9 %; RBC 3.35 mil/uL (4.20-5.00); RDW-CV 17.1 % (10.5-14.5); WBC 10.7 thou/uL (4.0-11.0)
[2021-03-31 06:50] LABS: BE -3.9 mmol/L (-2 to +3); PCO2 36.8 mmHg (35.0-45.0); PO2 68.3 mmHg (75.0-100.0); pH 7.369 (7.340-7.450)
[2021-03-31 06:51] LABS: CALCIUM 8.4 mg/dL (8.5-10.1); CREATININE 0.5 mg/dL (0.6-1.3); POTASSIUM 3.7 mmol/L (3.5-5.1)
[2021-03-31 07:02] LABS: TOTAL BILIRUBIN 0.3 mg/dL (<0.1-1.0); TOTAL PROTEIN 5.8 g/dL (6.4-8.2)
[2021-03-31 07:26] LABS: ICTOTEST (BILI CONFIRMATORY) Negative (Negative); URINE BILIRUBIN 1+ (Negative); URINE BLOOD 3+ (Negative); URINE CLARITY CLEAR; URINE COLOR YELLOW; URINE GLUCOSE-RANDOM NEGATIVE (Negative); URINE KETONES TRACE (Negative); URINE LEUKOCYTES-REFLEX TRACE (Negative); URINE NITRITE-REFLEX NEGATIVE (Negative); URINE PROTEIN 1+ (Negative); URINE SPECIFIC GRAVITY 1.025 (1.005-1.030)
[2021-03-31 07:29] LABS: ALBUMIN 1.9 g/dL (3.4-5.0)
[2021-03-31 07:50] LABS: BACTERIA-REFLEX 1-9 Few /HPF (None Seen); CRYSTALS None Seen /LPF (None Seen); HYALINE CASTS 4-10 Moderate /LPF (None Seen); MUCUS None Seen strn/LPF (None Seen); SQUAMOUS 4-10 Moderate /LPF (0-3); URINE RBC >20 Many /HPF (0-2); URINE WBC-REFLEX 0-5 Rare /HPF (0-5)
[2021-03-31 11:09] VITALS: BP 94/50
--- NOTE | 2021-03-31 11:16 | EKG ---
[place] [address] ELECTROCARDIOGRAM REPORT Name: ILIANAGILMERHANNAH [place] Room: [place] [address] ADM IN ..#: [id number] Admission: 03/31/21 Attend Phys: Keily Clayton, Discharge: Date of : 56 Date of Service: 03/31/2114 Report #: [id number] THIS REPORT FOR: //name// [facility] ED Test Date: 2021-03-31 Test Time: 06:14:44 Pat Name: HANNAH RHODES Department: Room: [facility] Gender: F Senior Project Coordinator: MR : 1960 Requested By: Silvia Sadler Order Number: [id number] MD: Bassam Choudhary Measurements Intervals [place] Rate: 107 P: 45 CA: 141 QRS: 26 QRSD: 108 T: -3 QT: 350 QTc: 467 Interpretive Statements Sinus tachycardia Probable left atrial enlargement Low voltage, precordial leads RSR' in V1 or V2, right VCD or RVH Borderline T abnormalities, diffuse leads Compared to ECG 02/05/2021 19:30:44 Sinus rhythm no longer present Prolonged QT interval no longer present Electronically Signed On 03-31-2021 11:16:36 CDT by Bassam Choudhary [email or web address] <ELECTRONICALLY SIGNED> By: Bassam Choudhary MD, [facility] 03/31/21 1116 3 3 Bassam Choudhary MD, [facility] /EPI
[2021-03-31 11:30] VITALS: BP 96/78
--- NOTE | 2021-03-31 15:00 | CON ---
[address] [address] CONSULTATION Name: HANNAH RHODES Room: [address] IN M.R.#: [id number] Admission: 03/31/21 Attend Phys: Keily Clayton MD Discharge: Date of : 56 Report #: [id number] THIS REPORT FOR: cc: Madyson Stewart,Bassam Cordon MD [facility] ~ DATE OF CONSULTATION: 03/31/2021 CARDIOLOGY CONSULTATION HISTORY OF PRESENT ILLNESS: The patient is a 61-year-old white female who I was asked to see in the hospital today after she was noted to have an abnormal troponin. Unfortunately, the patient currently has CPAP. She does not respond to voice. There are no family members available. The patient has been hospitalized here at [facility] in the past. She was here in 02/2021 with COVID pneumonia. She was here for several days. She is felt to have sleep apnea. She was eventually transferred to long-term care facility on 02/05 after being here for almost a month. The patient was brought back to the emergency room this morning by ambulance. Apparently, she was short of breath with agonal breathing at the rehab facility. Saturation of oxygen was low. She was placed on BiPAP. She was noted to have an abnormal troponin. Cardiology consultation requested. PAST MEDICAL HISTORY: She had a previous history of DVT at [facility]. She had a right knee arthroscopy, hysterectomy, tonsillectomy. She has a history of diabetes. MEDICATIONS: Her medications at a long-term care facility consisted of metformin, Neurontin, insulin. ALLERGIES: SHE HAS AN ALLERGY TO SULFA DRUGS. SOCIAL HISTORY: Apparently, she is a smoker. REVIEW OF SYSTEMS: No history of stroke, liver disease, kidney disease, cancer, psychiatric illness. PHYSICAL EXAMINATION: GENERAL: Revealed an overweight, middle-aged female, lying in bed. She appeared in no acute distress. She had BiPAP in place. She would not respond to voice. VITAL SIGNS: She had blood pressure of 100/60, pulse is 90. She was afebrile. HEENT: She was anicteric. Conjunctivae are pink. Mucosa is moist. NECK: Supple. No jugular vein distention. CHEST: [place] [address] CONSULTATION Name: HANNAH RHODES Room: [address]#: [id number] Admission: 03/31/21 Attend Phys: Keily Clayton MD Discharge: Date of : 56 Report #: [id number] HEART: Regular rate and rhythm. ABDOMEN: Obese. EXTREMITIES: Had no pitting edema. SKIN: Cool and dry. NEUROLOGIC: She would not follow commands. LABORATORY DATA: ECG on admission showed a sinus tachycardia with an incomplete right bundle branch block. She actually had an echocardiogram done in 01/2021 while the patient was admitted with COVID-19 that showed an ejection fraction of 60% with left ventricular hypertrophy. The patient had a portable chest x-ray this morning that showed mild cardiomegaly, bilateral infiltrates. There appeared to be consolidation. The patient actually had a CT scan of the head last month here at [facility] that showed no acute abnormality. LABORATORY WORK: Sodium 135, creatinine 0.5, albumin is only 1.9. High sensitivity troponin was 59. BNP 762. Hematocrit 33. Her COVID antigen stat test was negative. Urinalysis, 1+ protein, trace leukocytes, many rbc's. IMPRESSION AND RECOMMENDATIONS: 1. Borderline troponin. No history of angina. No EKG changes. Recommend no further cardiac evaluation. 2. Pneumonia. 3. Sleep apnea. 4. Recent COVID-19. 5. Anemia. 6. Chronic edema. Suspect venous insufficiency. 7. Obesity. 8. Diabetes. <ELECTRONICALLY SIGNED> By: Bassam Choudhary MD, FACC 03/31/21 1500 1157 1213Dbilly Choudhary MD, FACC /nt
[2021-03-31 16:00] VITALS: BP 104/61
[2021-03-31 20:44] VITALS: BP 116/71
[2021-04-01] VITALS (13 sets, daily range): BP systolic 114–163; BP diastolic 66–92
[2021-04-01 03:15] LABS: HEMATOCRIT 31.6 % (37.0-47.0); HEMOGLOBIN 10.6 gm/dL (12.0-15.0); MCH 32.8 pg (26.0-34.0); MCHC 33.5 g/dL (28.0-37.0); MPV 7.3 fl. (7.2-11.1); NUCLEATED RBCS 0 /100WBC; PLATELET COUNT* 409 thou/uL (150-400); RBC 3.23 mil/uL (4.20-5.00); RDW-CV 17.3 % (10.5-14.5); WBC 9.5 thou/uL (4.0-11.0)
[2021-04-01 03:34] LABS: APTT 28.9 Seconds (25.0-31.3); PROTIME 10.9 Seconds (9.20-11.50)
[2021-04-01 03:43] LABS: ALBUMIN 1.8 g/dL (3.4-5.0); CALCIUM 8.4 mg/dL (8.5-10.1); CREATININE 0.5 mg/dL (0.6-1.3); MAGNESIUM 2.3 mg/dL (1.8-2.4); POTASSIUM 4.2 mmol/L (3.5-5.1); TOTAL BILIRUBIN 0.2 mg/dL (<0.1-1.0); TOTAL PROTEIN 6.2 g/dL (6.4-8.2)
[2021-04-01 06:15] LABS: ABSOLUTE LYMPHOCYTES 0.7 thou/uL (0.8-5.3); ABSOLUTE MONOCYTES 0.2 thou/uL (0.0-1.2); ABSOLUTE NEUTROPHILS 8.6 thou/uL (1.6-8.1); CLUMPED PLTS FEW; PLATELET ESTIMATE INCREASED
[2021-04-01 06:16] LABS: ANISOCYTOSIS 1+; LARGE PLATELETS OCCASIONAL; POLYCHROMASIA 1+
[2021-04-01 20:16] LABS: BE 1.7 mmol/L (-2 to +3); PCO2 49.9 mmHg (35.0-45.0); pH 7.363 (7.340-7.450)
[2021-04-01 20:21] LABS: PO2 57.9 mmHg (75.0-100.0)
[2021-04-01 21:53] LABS: BE 3.8 mmol/L (-2 to +3); PCO2 47.7 mmHg (35.0-45.0); PO2 70.1 mmHg (75.0-100.0); pH 7.404 (7.340-7.450)
[2021-04-02] VITALS (111 sets, daily range): BP systolic 73–210; BP diastolic 40–108
[2021-04-02 05:07] LABS: ALBUMIN 2.2 g/dL (3.4-5.0); CREATININE 0.5 mg/dL (0.6-1.3); MAGNESIUM 1.7 mg/dL (1.8-2.4); POTASSIUM 3.8 mmol/L (3.5-5.1); TOTAL BILIRUBIN 0.3 mg/dL (<0.1-1.0)
[2021-04-02 05:50] LABS: HEMATOCRIT 30.2 % (37.0-47.0); HEMOGLOBIN 10.1 gm/dL (12.0-15.0); MCH 32.9 pg (26.0-34.0); MCHC 33.6 g/dL (28.0-37.0); MPV 7.6 fl. (7.2-11.1); RBC 3.08 mil/uL (4.20-5.00); RDW-CV 17.1 % (10.5-14.5); WBC 13.2 thou/uL (4.0-11.0)
[2021-04-02 09:33] LABS: BE 5.1 mmol/L (-2 to +3); PCO2 41.6 mmHg (35.0-45.0); pH 7.465 (7.340-7.450)
[2021-04-02 09:35] LABS: PO2 50.6 mmHg (75.0-100.0)
[2021-04-02 15:28] LABS: BE -1.1 mmol/L (-2 to +3); PO2 73.5 mmHg (75.0-100.0)
[2021-04-02 15:33] LABS: PCO2 56.2 mmHg (35.0-45.0); pH 7.287 (7.340-7.450)
[2021-04-02 17:22] LABS: BE 6.2 mmol/L (-2 to +3); PCO2 48.9 mmHg (35.0-45.0); PO2 72.5 mmHg (75.0-100.0); pH 7.427 (7.340-7.450)
[2021-04-03] VITALS (26 sets, daily range): BP systolic 109–162; BP diastolic 50–73
[2021-04-03 03:51] LABS: HEMATOCRIT 29.2 % (37.0-47.0); HEMOGLOBIN 9.8 gm/dL (12.0-15.0); MCH 33.2 pg (26.0-34.0); MCHC 33.5 g/dL (28.0-37.0); MCV 98.9 fL (80.0-100.0); MPV 7.4 fl. (7.2-11.1); RBC 2.95 mil/uL (4.20-5.00); RDW-CV 17.6 % (10.5-14.5); WBC 10.1 thou/uL (4.0-11.0)
[2021-04-03 04:21] LABS: CALCIUM 8.9 mg/dL (8.5-10.1); CREATININE 0.4 mg/dL (0.6-1.3); MAGNESIUM 1.7 mg/dL (1.8-2.4); POTASSIUM 4.2 mmol/L (3.5-5.1); TOTAL BILIRUBIN 0.3 mg/dL (<0.1-1.0); TOTAL PROTEIN 5.8 g/dL (6.4-8.2)
[2021-04-03 07:53] LABS: BE 5.3 mmol/L (-2 to +3); PCO2 45.6 mmHg (35.0-45.0); pH 7.438 (7.340-7.450)
[2021-04-03 07:56] LABS: PO2 49.4 mmHg (75.0-100.0)
--- NOTE | 2021-04-03 16:20 | 2DMMODE ---
[place] [address] 2 D/M-MODE ECHOCARDIOGRAM Name: HANNAH RHODES Room: [facility] ADM IN .R.#: [id number] Admission: 03/31/21 Attend Phys: Keily Clayton, Discharge: Date of : 56 Date of Service: 04/03/21 1619 Report #: [id number] THIS REPORT FOR: cc: Madyson Stewart,Bassam Cordon MD [facility] ~ ADDENDUM APPROVED REPORT Study performed: 04/03/2021 15:45:01 EXAM: Limited 2D Echocardiogram and doppler study Patient Location: In-Patient Room #: 007 Status: routine BSA: 2.00 HR: 105 bpm BP: 123/49 mmHg Rhythm: NSR Indications Reassess PA systolic pressure, LVEF Tricuspid Valve RAP Estimate: 5.00 mmHg TR Peak Gr.: 30.43 mmHg RVSP: 35.00 mmHg PA Pressure: 35.00 mmHg Left Ventricle The left ventricle is normal size. There is normal LV segmental wall motion. Mild concentric left ventricular hypertrophy. The left ventricular systolic function is normal. The left ventricular ejection fraction is within the normal range. LVEF is 60-65%. Right Ventricle Right ventricle is dilated. Atria The left atrium size is normal. The right atrium size is normal. Aortic Valve The aortic valve is normal in structure. Mitral Valve The mitral valve is normal in structure. Mild mitral [address] [address] 2 D/M-MODE ECHOCARDIOGRAM Name: HANNAH RHODES Room: [address] IN .R.#: [id number] Admission: 03/31/21 Attend Phys: Keily Clayton, Discharge: Date of : 56 Date of Service: 04/03/211618 Report #: [id number] regurgitation. Tricuspid Valve The tricuspid valve is normal in structure. Mild tricuspid regurgitation. estimated pa pressure 35 mm hg Pulmonic Valve Pulmonic valve is not well visualized. Great Vessels The aortic root is normal in size. IVC is normal in size and collapses >50% with inspiration. Pericardium There is no pericardial effusion. <Conclusion> LVEF is 60-65%. There is no pericardial effusion. Mild tricuspid regurgitation. estimated pa pressure 35 mm hg <ELECTRONICALLY SIGNED> By: Bassam Choudhary MD, [facility] 04/03/211618 18 18 Bassam Choudhary MD, FACC /INF
[2021-04-03 16:59] LABS: CALCIUM 8.9 mg/dL (8.5-10.1); CREATININE 0.5 mg/dL (0.6-1.3); MAGNESIUM 1.7 mg/dL (1.8-2.4); POTASSIUM 3.6 mmol/L (3.5-5.1)
[2021-04-04] VITALS (44 sets, daily range): BP systolic 108–197; BP diastolic 47–87
[2021-04-04 05:02] LABS: HEMATOCRIT 28.5 % (37.0-47.0); HEMOGLOBIN 9.4 gm/dL (12.0-15.0); MCH 32.7 pg (26.0-34.0); MCHC 33.1 g/dL (28.0-37.0); MCV 98.6 fL (80.0-100.0); NUCLEATED RBCS 0 /100WBC; PLATELET COUNT* 260 thou/uL (150-400); RBC 2.89 mil/uL (4.20-5.00); WBC 9.7 thou/uL (4.0-11.0)
[2021-04-04 05:21] LABS: ALBUMIN 2.2 g/dL (3.4-5.0); CALCIUM 9.1 mg/dL (8.5-10.1); CREATININE 0.4 mg/dL (0.6-1.3); MAGNESIUM 1.9 mg/dL (1.8-2.4); POTASSIUM 4.4 mmol/L (3.5-5.1); TOTAL BILIRUBIN 0.3 mg/dL (<0.1-1.0); TOTAL PROTEIN 5.7 g/dL (6.4-8.2)
[2021-04-04 07:16] LABS: ABSOLUTE LYMPHOCYTES 0.3 thou/uL (0.8-5.3); ABSOLUTE MONOCYTES 0.6 thou/uL (0.0-1.2); ABSOLUTE NEUTROPHILS 8.8 thou/uL (1.6-8.1)
[2021-04-04 07:17] LABS: ANISOCYTOSIS 1+; PLATELET ESTIMATE ADEQUATE; POIKILOCYTOSIS 1+
[2021-04-04 08:47] LABS: BE 7.9 mmol/L (-2 to +3); PO2 65.2 mmHg (75.0-100.0); pH 7.408 (7.340-7.450)
[2021-04-04 15:39] LABS: INFLUENZA A ANTIGEN Negative (Negative); INFLUENZA B ANTIGEN Negative (Negative)
[2021-04-04 17:36] LABS: CALCIUM 9.1 mg/dL (8.5-10.1); CREATININE 0.5 mg/dL (0.6-1.3); MAGNESIUM 1.9 mg/dL (1.8-2.4); POTASSIUM 4.7 mmol/L (3.5-5.1)
--- NOTE | 2021-04-04 18:35 | CON ---
[address] [address] CONSULTATION Name: HANNAH RHODES Room: [address] ADM IN M.R.#: [id number] Admission: 03/31/21 Attend Phys: Keily Clayton MD Discharge: Date of : 56 Report #: [id number] THIS REPORT FOR: cc: Madyson Stewart,Garrett Mitchell MD ~ DATE OF CONSULTATION: 03/31/2021 REQUESTING PHYSICIAN: Consult has been requested by Dr. Clayton. INDICATION FOR CONSULTATION: Recurrent pneumonia. HISTORY OF PRESENT ILLNESS: This is a 61-year-old female. Past medical history is as mentioned below. She was only recently discharged from our hospital and I did take care of her during the previous hospitalization. She was transferred to an LTAC from our hospital towards the end of February. The patient at that time had been admitted with ARDS secondary to COVID-19. She was on the ventilator for several days; however, did not require a PEG or trach and we were able to extubate her. Based on clinical history, it appeared that she had previous COPD as well as obstructive sleep apnea, but these were not previously diagnosed. We did a culture Aspergillus fumigatus from her sputum. She was treated in addition to other antibiotics with voriconazole. She did have significant elevation in lipase/pancreatitis and the possibility that pancreatitis may have been secondary to voriconazole was considered. She went from our hospital to an LTAC, is now being transferred here from a long-term care facility which may not be the LTAC that we had transferred her to. Apparently, the patient started having increasing shortness of breath, was hypoxemic, dropped her blood pressure up to 77 systolic, due to agonal breathing was placed on BiPAP and transferred to our hospital. Initially, the patient was hypotensive. She did receive 2 liters of fluid. Blood pressure still remains on the lower side, it is around 94/55. She does have swelling of lower extremities. She, however, is currently stable on 40% FiO2 with BiPAP. She is fully awake. She is able to take orally. She does not report much sputum production, although says she has a cough. There are no recent upper respiratory complaints. She has had shingles, which is getting better. The patient is on a BiPAP and is able to provide a limited history and review of systems. REVIEW OF SYSTEMS: Review of systems for 12 points is negative, though with the exception of as mentioned above. PAST MEDICAL HISTORY: Recent admission to our hospital with ARDS secondary to COVID-19. The patient was on the ventilator, was successfully extubated and did not require a tracheostomy or PEG tube, pulmonary infiltrates [place] [address] CONSULTATION Name: HANNAH RHODES Room: [facility] IN M.R.#: [id number] Admission: 03/31/21 Attend Phys: Keily Clayton MD Discharge: Date of : 56 Report #: [id number] fumigatus cultured from her sputum during the last hospitalization, elevation in lipase/pancreatitis during the last hospitalization, not fully apparent as to whether this was related to voriconazole or not, COPD based on clinical history not previously diagnosed, obstructive sleep apnea based on clinical history not previously diagnosed, previous history of morbid obesity, the body mass index is now decreased to 36, previous history of DVT, venous Dopplers were negative during the last hospitalization. Echocardiograms during the last hospitalization repeated twice showed left ventricular ejection fraction of 60-65% without elevation in right heart pressures, also a history of spinal stenosis and back pain, previous use of narcotics prescribed to her, diabetes, tonsillectomy, , hysterectomy, heel spur, carpal tunnel surgery, right knee surgery. SOCIAL HISTORY: Extensive history of smoking, was smoking until she was admitted to our hospital a couple of months ago with COVID, previous history of prescribed narcotic use. No known history of heavy alcohol use. CURRENT MEDICATIONS: List in [facility] reviewed. HOME MEDICATIONS: List also in [facility] reviewed. ALLERGIES: ADHESIVE, LATEX, SULFONAMIDE ANTIBIOTICS. FAMILY HISTORY: No pertinent family history. IMMUNIZATION HISTORY: Has not been vaccinated for COVID-19. PHYSICAL EXAMINATION: GENERAL: The patient was alert, awake and oriented. VITAL SIGNS: But was on a BiPAP, which limited evaluation 40% FiO2, saturating 94-95%, pulse 100, blood pressure 104/61, respiratory rate in the low 20s, temperature 37.2. HEENT: Head is normocephalic and atraumatic. Throat examination is limited due to the presence of BiPAP. No obvious throat erythema. NECK: Does not show raised JVP, asymmetry, mass or lymph nodes. CHEST: Symmetrical expansion on inspection and palpation. On auscultation, breath sounds are bilaterally equal, but decreased. I do not hear any added sounds. HEART: Regular. There is no murmur. ABDOMEN: Soft and nontender. EXTREMITIES: Lower extremities do show 1+ edema bilaterally. There is no calf tenderness. SKIN: Dry and intact. NEUROLOGIC: Moves all extremities bilaterally equally and spontaneously with [place] [address] CONSULTATION Name: HANNAH RHODES Room: [address] IN [facility]#: [id number] Admission: 03/31/21 Attend Phys: Keily Clayton MD Discharge: Date of : 56 Report #: [id number] LABORATORY DATA: The patient's chest x-ray does show extensive bilateral infiltrates. These appear to be significantly worse than at the time of her last discharge. The patient's lab work, which does show a low albumin level, but normal BUN and creatinine in [facility] reviewed. Potassium is towards the lower end of normal range at 3.7. There is a critically low magnesium at 1.0. I repeated her lipase level and came back normal at 44. Arterial blood gas is consistent with acute hypoxemic respiratory failure. COVID-19 antigen is negative. CBC in [facility] reviewed. ASSESSMENT AND PLAN: 1. Acute hypoxemic respiratory failure. The patient does appear to be fluid overloaded; however, I do not feel that this will adequately explain the patient's current clinical picture. She may have a new pneumonia. Also, thromboembolism is not fully ruled out at this time. For now, I would continue with BiPAP while asleep and p.r.n. We will try to take her off BiPAP while awake. I will adjust the BiPAP setting and put her on the AVAPS mode. 2. Pulmonary infiltrates/recent Aspergillus fumigatus infection. The patient was treated with voriconazole. Details regarding the duration of time the patient received voriconazole are not known to me at this time. Also, as noted above, there was a question as to whether the patient had elevation in lipase secondary to voriconazole. The patient currently is on vancomycin and meropenem. I continued the same. We will review the records further and then decide as to whether we need to add atypical coverage. If she fails to improve, then we may need to consider adding antifungal coverage as well. Options in that case will include either the use of voriconazole with close followup of lipase level or the use of micafungin as a salvage therapy. If we are able to do a sputum culture, I would like to do the same as well and obtain a nasal swab for methicillin-resistant Staphylococcus aureus. 3. Fluid overload/hypotension/hypoalbuminemia. She appears to be total body fluid overloaded; therefore, I would discontinue IV fluids. I started midodrine and recommended titrating this to optimal blood pressure. I did order another dose of Lasix with Aldactone and albumin tomorrow morning. The patient may benefit from additional amounts of Lasix and albumin this weekend. 4. Pedal edema/evaluation for thromboembolic phenomena. She has a previous history of deep venous thrombosis, but venous Dopplers were negative during the last hospitalization. I would at this time go ahead and repeat venous Dopplers, ordered a D-dimer tomorrow morning as well. If she fails to improve and the D-dimer is elevated, then potentially a CTA chest could be considered this weekend. 5. Chronic obstructive pulmonary disease exacerbation, not previously diagnosed, but it appears to me that she does have chronic obstructive pulmonary disease. She however does not appear to be actively bronchospastic at this time. I continued with Solu-Medrol, but I cut down the dose. Continue with [address] [place] [address] CONSULTATION Name: HANNAH RHODES Room: [address] IN M.R.#: [id number] Admission: 03/31/21 Attend Phys: Keily Clayton MD Discharge: Date of : 56 Report #: [id number] [facility]. 6. Severe hypomagnesemia. Replacement ordered. 7. Recent acute respiratory distress syndrome secondary to COVID-19. Discussion as above. 8. Recent pancreatitis. Lipase is now normal. 9. Shingles. These are noted on exam, but appear to be improving. She is on an antiviral. 10. Deep venous thrombosis prophylaxis, on Lovenox. 11. Clostridium difficile prophylaxis, Lactinex. 12. Gastrointestinal prophylaxis, Protonix. 13. Hyperglycemia. Already, she is on an insulin sliding scale. 14. Mild elevation in troponin I. Cardiology Service is on the case. <ELECTRONICALLY SIGNED> By: Garrett Palmer MD 04/04/21 [id number] [id number] 1918Adior Palmer MD /nt
[2021-04-05] VITALS (41 sets, daily range): BP systolic 120–176; BP diastolic 44–78
[2021-04-05 05:32] LABS: ABSOLUTE BASOPHILS 0.1 thou/uL (0.0-0.2); ABSOLUTE LYMPHOCYTES 0.9 thou/uL (0.8-5.3); ABSOLUTE MONOCYTES 0.8 thou/uL (0.0-1.2); ABSOLUTE NEUTROPHILS 8.7 thou/uL (1.6-8.1); BASOPHILS 0.6 %; HEMATOCRIT 28.4 % (37.0-47.0); HEMOGLOBIN 9.4 gm/dL (12.0-15.0); LYMPHOCYTES 8.4 %; MONOCYTES 7.8 %; MPV 8.4 fl. (7.2-11.1); NUCLEATED RBCS 1 /100WBC; PLATELET COUNT* 216 thou/uL (150-400); POLYS 83.2 %; RBC 2.84 mil/uL (4.20-5.00); RDW-CV 16.9 % (10.5-14.5); WBC 10.4 thou/uL (4.0-11.0)
[2021-04-05 05:41] LABS: ALBUMIN 2.5 g/dL (3.4-5.0); CALCIUM 8.7 mg/dL (8.5-10.1); CREATININE 0.5 mg/dL (0.6-1.3); POTASSIUM 4.9 mmol/L (3.5-5.1); TOTAL BILIRUBIN 0.2 mg/dL (<0.1-1.0); TOTAL PROTEIN 5.7 g/dL (6.4-8.2)
[2021-04-05 06:16] LABS: PHOSPHORUS* 4.4 mg/dL (2.5-4.9)
[2021-04-05 09:10] LABS: BE 8.5 mmol/L (-2 to +3); PO2 65.1 mmHg (75.0-100.0); pH 7.391 (7.340-7.450)
[2021-04-06] VITALS (41 sets, daily range): BP systolic 100–147; BP diastolic 42–58
[2021-04-06 04:44] LABS: ABSOLUTE BASOPHILS 0.1 thou/uL (0.0-0.2); ABSOLUTE EOSINOPHILS 0.4 thou/uL (0.0-0.7); ABSOLUTE LYMPHOCYTES 1.8 thou/uL (0.8-5.3); ABSOLUTE MONOCYTES 1.2 thou/uL (0.0-1.2); ABSOLUTE NEUTROPHILS 9.2 thou/uL (1.6-8.1); BASOPHILS 0.9 %; EOSINOPHILS 2.9 %; HEMATOCRIT 27.5 % (37.0-47.0); LYMPHOCYTES 14.5 %; MCH 32.7 pg (26.0-34.0); MCHC 32.9 g/dL (28.0-37.0); MCV 99.4 fL (80.0-100.0); MONOCYTES 9.4 %; MPV 8.2 fl. (7.2-11.1); NUCLEATED RBCS 1 /100WBC; PLATELET COUNT* 199 thou/uL (150-400); POLYS 72.3 %; RBC 2.76 mil/uL (4.20-5.00); RDW-CV 16.7 % (10.5-14.5); WBC 12.7 thou/uL (4.0-11.0)
[2021-04-06 05:06] LABS: ALBUMIN 2.3 g/dL (3.4-5.0); CALCIUM 8.7 mg/dL (8.5-10.1); CREATININE 0.3 mg/dL (0.6-1.3); MAGNESIUM 1.7 mg/dL (1.8-2.4); POTASSIUM 4.7 mmol/L (3.5-5.1); TOTAL BILIRUBIN 0.2 mg/dL (<0.1-1.0); TOTAL PROTEIN 5.4 g/dL (6.4-8.2)
[2021-04-06 05:10] LABS: LIPASE 86 U/L (73-393); TRIGLYCERIDE 326 mg/dL (<150)
[2021-04-06 09:17] LABS: BE 7.9 mmol/L (-2 to +3); PO2 67.4 mmHg (75.0-100.0); pH 7.345 (7.340-7.450)
[2021-04-06 09:21] LABS: PCO2 66.2 mmHg (35.0-45.0)
[2021-04-06 17:11] LABS: CALCIUM 8.3 mg/dL (8.5-10.1); CREATININE 0.4 mg/dL (0.6-1.3); POTASSIUM 4.3 mmol/L (3.5-5.1)
[2021-04-07] VITALS (47 sets, daily range): BP systolic 119–159; BP diastolic 41–61
[2021-04-07 03:02] LABS: ABSOLUTE BASOPHILS 0.1 thou/uL (0.0-0.2); ABSOLUTE EOSINOPHILS 0.9 thou/uL (0.0-0.7); ABSOLUTE NEUTROPHILS 12.4 thou/uL (1.6-8.1); BASOPHILS 0.8 %; HEMATOCRIT 26.8 % (37.0-47.0); HEMOGLOBIN 8.8 gm/dL (12.0-15.0); LYMPHOCYTES 6.3 %; MCH 32.6 pg (26.0-34.0); MCHC 32.8 g/dL (28.0-37.0); MCV 99.4 fL (80.0-100.0); MONOCYTES 6.5 %; MPV 8.4 fl. (7.2-11.1); NUCLEATED RBCS 0 /100WBC; PLATELET COUNT* 209 thou/uL (150-400); POLYS 80.4 %; RDW-CV 16.9 % (10.5-14.5); WBC 15.4 thou/uL (4.0-11.0)
[2021-04-07 03:30] LABS: ALBUMIN 2.6 g/dL (3.4-5.0); CALCIUM 8.5 mg/dL (8.5-10.1); CREATININE 0.4 mg/dL (0.6-1.3); MAGNESIUM 1.7 mg/dL (1.8-2.4); POTASSIUM 3.9 mmol/L (3.5-5.1); TOTAL BILIRUBIN 0.3 mg/dL (<0.1-1.0); TOTAL PROTEIN 5.4 g/dL (6.4-8.2)
[2021-04-07 08:07] LABS: BE 11.2 mmol/L (-2 to +3); PO2 61.6 mmHg (75.0-100.0); pH 7.378 (7.340-7.450)
[2021-04-07 08:14] LABS: PCO2 66.6 mmHg (35.0-45.0)
[2021-04-08] VITALS (40 sets, daily range): BP systolic 121–181; BP diastolic 41–68
[2021-04-08 04:05] LABS: ABSOLUTE BASOPHILS 0.1 thou/uL (0.0-0.2); ABSOLUTE EOSINOPHILS 0.3 thou/uL (0.0-0.7); ABSOLUTE LYMPHOCYTES 2.1 thou/uL (0.8-5.3); ABSOLUTE MONOCYTES 0.8 thou/uL (0.0-1.2); ABSOLUTE NEUTROPHILS 11.3 thou/uL (1.6-8.1); BASOPHILS 0.9 %; EOSINOPHILS 2.1 %; HEMATOCRIT 25.2 % (37.0-47.0); HEMOGLOBIN 8.1 gm/dL (12.0-15.0); LYMPHOCYTES 14.3 %; MCH 32.4 pg (26.0-34.0); MCHC 32.2 g/dL (28.0-37.0); MCV 100.7 fL (80.0-100.0); MONOCYTES 5.4 %; MPV 8.8 fl. (7.2-11.1); NUCLEATED RBCS 0 /100WBC; PLATELET COUNT* 236 thou/uL (150-400); POLYS 77.3 %; RDW-CV 16.5 % (10.5-14.5); WBC 14.6 thou/uL (4.0-11.0)
[2021-04-08 04:22] LABS: ALBUMIN 2.6 g/dL (3.4-5.0); CALCIUM 8.5 mg/dL (8.5-10.1); CREATININE 0.4 mg/dL (0.6-1.3); MAGNESIUM 1.9 mg/dL (1.8-2.4); POTASSIUM 4.3 mmol/L (3.5-5.1); TOTAL BILIRUBIN 0.2 mg/dL (<0.1-1.0); TOTAL PROTEIN 5.5 g/dL (6.4-8.2)
[2021-04-08 07:47] LABS: BE 7.6 mmol/L (-2 to +3); PO2 68.7 mmHg (75.0-100.0); pH 7.307 (7.340-7.450)
[2021-04-08 07:59] LABS: PCO2 72.8 mmHg (35.0-45.0)
[2021-04-08 14:30] LABS: BE 6.5 mmol/L (-2 to +3); PO2 96.1 mmHg (75.0-100.0); pH 7.342 (7.340-7.450)
[2021-04-08 14:34] LABS: PCO2 63.1 mmHg (35.0-45.0)
[2021-04-08 17:20] LABS: ANION GAP < 0 mmol/L (7-16); BUN 18 mg/dL (7-18); CALCIUM 8.2 mg/dL (8.5-10.1); CHLORIDE 96 mmol/L (98-107); CO2 40 mmol/L (21-32); CREATININE 0.4 mg/dL (0.6-1.3); GLUCOSE 216 mg/dL (70-99); POTASSIUM 4.8 mmol/L (3.5-5.1); SODIUM 135 mmol/L (136-145)
[2021-04-09] VITALS (24 sets, daily range): BP systolic 96–171; BP diastolic 46–91
[2021-04-09 04:53] LABS: ABSOLUTE LYMPHOCYTES 0.8 thou/uL (0.8-5.3); ABSOLUTE NEUTROPHILS 13.6 thou/uL (1.6-8.1); BASOPHILS 0.2 %; HEMATOCRIT 25.9 % (37.0-47.0); HEMOGLOBIN 8.4 gm/dL (12.0-15.0); LYMPHOCYTES 5.1 %; MCH 31.8 pg (26.0-34.0); MCHC 32.3 g/dL (28.0-37.0); MCV 98.7 fL (80.0-100.0); MONOCYTES 6.6 %; MPV 8.7 fl. (7.2-11.1); NUCLEATED RBCS 0 /100WBC; PLATELET COUNT* 237 thou/uL (150-400); POLYS 88.1 %; RBC 2.62 mil/uL (4.20-5.00); RDW-CV 16.5 % (10.5-14.5); WBC 15.4 thou/uL (4.0-11.0)
[2021-04-09 05:18] LABS: ALBUMIN 2.6 g/dL (3.4-5.0); CALCIUM 8.6 mg/dL (8.5-10.1); CREATININE 0.4 mg/dL (0.6-1.3); MAGNESIUM 1.7 mg/dL (1.8-2.4); POTASSIUM 4.2 mmol/L (3.5-5.1); TOTAL BILIRUBIN 0.2 mg/dL (<0.1-1.0); TOTAL PROTEIN 5.6 g/dL (6.4-8.2)
[2021-04-09 05:20] LABS: PHOSPHORUS* 2.3 mg/dL (2.5-4.9)
[2021-04-09 08:15] LABS: BE 11.4 mmol/L (-2 to +3); PO2 73.6 mmHg (75.0-100.0); pH 7.367 (7.340-7.450)
[2021-04-09 08:24] LABS: PCO2 69.1 mmHg (35.0-45.0)
[2021-04-09 16:20] LABS: BE 10.3 mmol/L (-2 to +3); PCO2 VENOUS 65.8 mmHg (41.0-51.0); PO2 VENOUS 88.5 mmHg (35.0-45.0)
[2021-04-09 16:35] LABS: CALCIUM 8.6 mg/dL (8.5-10.1); CREATININE 0.4 mg/dL (0.6-1.3); POTASSIUM 4.3 mmol/L (3.5-5.1)
[2021-04-10] VITALS (23 sets, daily range): BP systolic 114–146; BP diastolic 61–88
[2021-04-10 05:03] LABS: HEMATOCRIT 26.8 % (37.0-47.0); HEMOGLOBIN 8.6 gm/dL (12.0-15.0); MCH 31.7 pg (26.0-34.0); MCHC 31.9 g/dL (28.0-37.0); MCV 99.5 fL (80.0-100.0); NUCLEATED RBCS 0 /100WBC; PLATELET COUNT* 276 thou/uL (150-400); RDW-CV 16.6 % (10.5-14.5); WBC 19.8 thou/uL (4.0-11.0)
[2021-04-10 05:19] LABS: ALBUMIN 2.7 g/dL (3.4-5.0); CALCIUM 8.8 mg/dL (8.5-10.1); CREATININE 0.4 mg/dL (0.6-1.3); MAGNESIUM 1.9 mg/dL (1.8-2.4); POTASSIUM 4.1 mmol/L (3.5-5.1); TOTAL BILIRUBIN 0.2 mg/dL (<0.1-1.0); TOTAL PROTEIN 5.5 g/dL (6.4-8.2)
[2021-04-10 07:44] LABS: ABSOLUTE LYMPHOCYTES 0.2 thou/uL (0.8-5.3); ABSOLUTE MONOCYTES 1.2 thou/uL (0.0-1.2); ABSOLUTE NEUTROPHILS 18.4 thou/uL (1.6-8.1); ANISOCYTOSIS 1+; PLATELET ESTIMATE ADEQUATE; POIKILOCYTOSIS 1+; POLYCHROMASIA 1+
[2021-04-10 08:34] LABS: BE 4.9 mmol/L (-2 to +3); PO2 104.5 mmHg (75.0-100.0); pH 7.346 (7.340-7.450)
[2021-04-10 08:39] LABS: PCO2 59.2 mmHg (35.0-45.0)
[2021-04-10 16:57] LABS: CALCIUM 9.1 mg/dL (8.5-10.1); CREATININE 0.4 mg/dL (0.6-1.3); MAGNESIUM 1.7 mg/dL (1.8-2.4)
[2021-04-11] VITALS (27 sets, daily range): BP systolic 81–142; BP diastolic 46–77
[2021-04-11 05:25] LABS: ABSOLUTE LYMPHOCYTES 0.8 thou/uL (0.8-5.3); ABSOLUTE NEUTROPHILS 18.8 thou/uL (1.6-8.1); BASOPHILS 0.1 %; HEMATOCRIT 25.8 % (37.0-47.0); HEMOGLOBIN 8.5 gm/dL (12.0-15.0); LYMPHOCYTES 3.9 %; MCH 32.4 pg (26.0-34.0); MONOCYTES 4.8 %; NUCLEATED RBCS 0 /100WBC; PLATELET COUNT* 304 thou/uL (150-400); POLYS 91.2 %; RBC 2.64 mil/uL (4.20-5.00); RDW-CV 16.8 % (10.5-14.5); WBC 20.5 thou/uL (4.0-11.0)
[2021-04-11 05:58] LABS: POTASSIUM 4.2 mmol/L (3.5-5.1)
[2021-04-11 06:15] LABS: ALBUMIN 3.3 g/dL (3.4-5.0); CALCIUM 9.3 mg/dL (8.5-10.1); CREATININE 0.4 mg/dL (0.6-1.3); MAGNESIUM 1.9 mg/dL (1.8-2.4); TOTAL BILIRUBIN 0.2 mg/dL (<0.1-1.0); TOTAL PROTEIN 5.7 g/dL (6.4-8.2)
[2021-04-11 06:34] LABS: PREALBUMIN 21.6 mg/dL (18.0-35.7)
[2021-04-11 06:36] LABS: PHOSPHORUS* 3.4 mg/dL (2.5-4.9)
[2021-04-11 09:30] LABS: BE 6.5 mmol/L (-2 to +3); PO2 64.5 mmHg (75.0-100.0); pH 7.417 (7.340-7.450)
[2021-04-11 09:36] LABS: PCO2 50.8 mmHg (35.0-45.0)
[2021-04-11 15:57] LABS: CALCIUM 9.1 mg/dL (8.5-10.1); CREATININE 0.3 mg/dL (0.6-1.3); MAGNESIUM 2.2 mg/dL (1.8-2.4); POTASSIUM 4.4 mmol/L (3.5-5.1)
[2021-04-11 16:34] LABS: BE 10.2 mmol/L (-2 to +3); PO2 70.9 mmHg (75.0-100.0); pH 7.411 (7.340-7.450)
[2021-04-11 16:35] LABS: PCO2 58.6 mmHg (35.0-45.0)
[2021-04-12] VITALS (56 sets, daily range): BP systolic 70–140; BP diastolic 31–75
[2021-04-12 06:49] LABS: HEMOGLOBIN 9.3 gm/dL (12.0-15.0)
[2021-04-12 06:51] LABS: ABSOLUTE BASOPHILS 0.1 thou/uL (0.0-0.2); ABSOLUTE LYMPHOCYTES 0.6 thou/uL (0.8-5.3); ABSOLUTE MONOCYTES 1.3 thou/uL (0.0-1.2); ABSOLUTE NEUTROPHILS 25.6 thou/uL (1.6-8.1); BASOPHILS 0.2 %; HEMATOCRIT 28.1 % (37.0-47.0); MCH 32.9 pg (26.0-34.0); MCV 99.5 fL (80.0-100.0); MONOCYTES 4.8 %; MPV 9.2 fl. (7.2-11.1); NUCLEATED RBCS 1 /100WBC; RBC 2.82 mil/uL (4.20-5.00); RDW-CV 17.7 % (10.5-14.5); WBC 27.5 thou/uL (4.0-11.0)
[2021-04-12 06:54] LABS: PLATELET COUNT* 407 thou/uL (150-400)
[2021-04-12 07:24] LABS: ALBUMIN 3.3 g/dL (3.4-5.0); CALCIUM 9.2 mg/dL (8.5-10.1); CREATININE 0.4 mg/dL (0.6-1.3); MAGNESIUM 1.8 mg/dL (1.8-2.4); POTASSIUM 3.9 mmol/L (3.5-5.1); TOTAL BILIRUBIN 0.4 mg/dL (<0.1-1.0); TOTAL PROTEIN 5.7 g/dL (6.4-8.2)
[2021-04-12 08:06] LABS: BE 5.6 mmol/L (-2 to +3); pH 7.372 (7.340-7.450)
[2021-04-12 08:08] LABS: PCO2 56.2 mmHg (35.0-45.0)
[2021-04-13] VITALS (44 sets, daily range): BP systolic 94–220; BP diastolic 46–96
[2021-04-13 03:43] LABS: ABSOLUTE BASOPHILS 0.1 thou/uL (0.0-0.2); ABSOLUTE LYMPHOCYTES 0.4 thou/uL (0.8-5.3); ABSOLUTE MONOCYTES 0.8 thou/uL (0.0-1.2); ABSOLUTE NEUTROPHILS 20.8 thou/uL (1.6-8.1); BASOPHILS 0.4 %; EOSINOPHILS 0.1 %; HEMATOCRIT 26.2 % (37.0-47.0); HEMOGLOBIN 8.9 gm/dL (12.0-15.0); LYMPHOCYTES 1.8 %; MCH 33.7 pg (26.0-34.0); MCHC 33.9 g/dL (28.0-37.0); MCV 99.2 fL (80.0-100.0); MONOCYTES 3.6 %; MPV 8.7 fl. (7.2-11.1); NUCLEATED RBCS 0 /100WBC; PLATELET COUNT* 359 thou/uL (150-400); POLYS 94.1 %; RBC 2.64 mil/uL (4.20-5.00); RDW-CV 17.6 % (10.5-14.5); WBC 22.1 thou/uL (4.0-11.0)
[2021-04-13 04:18] LABS: PHOSPHORUS* 4.8 mg/dL (2.5-4.9)
[2021-04-13 04:19] LABS: ALBUMIN 3.2 g/dL (3.4-5.0); CALCIUM 9.1 mg/dL (8.5-10.1); CREATININE 0.4 mg/dL (0.6-1.3); MAGNESIUM 2.2 mg/dL (1.8-2.4); POTASSIUM 4.3 mmol/L (3.5-5.1); TOTAL BILIRUBIN 0.4 mg/dL (<0.1-1.0); TOTAL PROTEIN 5.6 g/dL (6.4-8.2)
[2021-04-13 09:42] LABS: BE 4.8 mmol/L (-2 to +3); PO2 82.1 mmHg (75.0-100.0); pH 7.301 (7.340-7.450)
[2021-04-13 09:46] LABS: PCO2 67.2 mmHg (35.0-45.0)
[2021-04-13 17:11] LABS: BE 10.4 mmol/L (-2 to +3); PO2 103.3 mmHg (75.0-100.0); pH 7.389 (7.340-7.450)
[2021-04-13 17:14] LABS: PCO2 62.8 mmHg (35.0-45.0)
[2021-04-14] VITALS (17 sets, daily range): BP systolic 93–178; BP diastolic 57–101
[2021-04-14 07:43] LABS: HEMATOCRIT 28.3 % (37.0-47.0); HEMOGLOBIN 9.3 gm/dL (12.0-15.0); MCH 32.5 pg (26.0-34.0); MCHC 32.7 g/dL (28.0-37.0); MCV 99.2 fL (80.0-100.0); MPV 8.5 fl. (7.2-11.1); NUCLEATED RBCS 0 /100WBC; PLATELET COUNT* 378 thou/uL (150-400); RBC 2.86 mil/uL (4.20-5.00); RDW-CV 17.4 % (10.5-14.5); WBC 20.6 thou/uL (4.0-11.0)
[2021-04-14 07:57] LABS: ALBUMIN 3.5 g/dL (3.4-5.0); CALCIUM 9.3 mg/dL (8.5-10.1); CREATININE 0.4 mg/dL (0.6-1.3); MAGNESIUM 1.9 mg/dL (1.8-2.4); POTASSIUM 4.2 mmol/L (3.5-5.1); TOTAL BILIRUBIN 0.3 mg/dL (<0.1-1.0)
[2021-04-14 08:12] LABS: BE 10.7 mmol/L (-2 to +3); PO2 91.9 mmHg (75.0-100.0); pH 7.446 (7.340-7.450)
[2021-04-14 08:17] LABS: PCO2 53.9 mmHg (35.0-45.0)
[2021-04-14 08:39] LABS: ABSOLUTE LYMPHOCYTES 1.4 thou/uL (0.8-5.3); ABSOLUTE MONOCYTES 0.2 thou/uL (0.0-1.2); PLATELET ESTIMATE ADEQUATE
[2021-04-14 08:40] LABS: HYPOCHROMASIA 2+; MICROCYTES 1+
[2021-04-14 08:41] LABS: POLYCHROMASIA Occasional
[2021-04-14 08:42] LABS: ANISOCYTOSIS 1+
[2021-04-14 09:42] LABS: PHOSPHORUS* 3.2 mg/dL (2.5-4.9)
[2021-04-15] VITALS (45 sets, daily range): BP systolic 90–140; BP diastolic 52–84
[2021-04-15 04:57] LABS: ABSOLUTE BASOPHILS 0.1 thou/uL (0.0-0.2); ABSOLUTE LYMPHOCYTES 1.4 thou/uL (0.8-5.3); ABSOLUTE MONOCYTES 1.6 thou/uL (0.0-1.2); ABSOLUTE NEUTROPHILS 14.6 thou/uL (1.6-8.1); BASOPHILS 0.7 %; EOSINOPHILS 0.2 %; HEMATOCRIT 29.1 % (37.0-47.0); HEMOGLOBIN 9.5 gm/dL (12.0-15.0); LYMPHOCYTES 7.9 %; MCH 32.3 pg (26.0-34.0); MCHC 32.7 g/dL (28.0-37.0); MCV 98.7 fL (80.0-100.0); MONOCYTES 8.9 %; MPV 8.6 fl. (7.2-11.1); NUCLEATED RBCS 1 /100WBC; PLATELET COUNT* 344 thou/uL (150-400); POLYS 82.3 %; RBC 2.95 mil/uL (4.20-5.00); RDW-CV 18.6 % (10.5-14.5); WBC 17.7 thou/uL (4.0-11.0)
[2021-04-15 05:22] LABS: ALBUMIN 3.2 g/dL (3.4-5.0); CALCIUM 9.1 mg/dL (8.5-10.1); CREATININE 0.4 mg/dL (0.6-1.3); POTASSIUM 3.7 mmol/L (3.5-5.1); TOTAL BILIRUBIN 0.3 mg/dL (<0.1-1.0); TOTAL PROTEIN 5.8 g/dL (6.4-8.2)
[2021-04-15 12:56] LABS: BE 9.5 mmol/L (-2 to +3); PCO2 47.8 mmHg (35.0-45.0); PO2 63.4 mmHg (75.0-100.0); pH 7.474 (7.340-7.450)
[2021-04-16] VITALS (44 sets, daily range): BP systolic 101–151; BP diastolic 58–79
[2021-04-16 05:34] LABS: ABSOLUTE EOSINOPHILS 0.2 thou/uL (0.0-0.7); ABSOLUTE LYMPHOCYTES 1.6 thou/uL (0.8-5.3); ABSOLUTE MONOCYTES 1.2 thou/uL (0.0-1.2); ABSOLUTE NEUTROPHILS 11.6 thou/uL (1.6-8.1); BASOPHILS 0.3 %; EOSINOPHILS 1.2 %; HEMATOCRIT 29.2 % (37.0-47.0); HEMOGLOBIN 9.7 gm/dL (12.0-15.0); LYMPHOCYTES 11.1 %; MCH 32.8 pg (26.0-34.0); MCHC 33.1 g/dL (28.0-37.0); MCV 99.1 fL (80.0-100.0); MONOCYTES 8.5 %; MPV 8.3 fl. (7.2-11.1); NUCLEATED RBCS 0 /100WBC; PLATELET COUNT* 295 thou/uL (150-400); POLYS 78.9 %; RBC 2.94 mil/uL (4.20-5.00); RDW-CV 18.6 % (10.5-14.5); WBC 14.7 thou/uL (4.0-11.0)
[2021-04-16 05:49] LABS: ALBUMIN 3.1 g/dL (3.4-5.0); CALCIUM 8.8 mg/dL (8.5-10.1); CREATININE 0.3 mg/dL (0.6-1.3); MAGNESIUM 1.9 mg/dL (1.8-2.4); PHOSPHORUS* 3.6 mg/dL (2.5-4.9); TOTAL BILIRUBIN 0.5 mg/dL (<0.1-1.0); TOTAL PROTEIN 5.7 g/dL (6.4-8.2)
[2021-04-16 17:55] LABS: ALBUMIN 3.2 g/dL (3.4-5.0); CALCIUM 8.9 mg/dL (8.5-10.1); CREATININE 0.3 mg/dL (0.6-1.3); POTASSIUM 4.3 mmol/L (3.5-5.1); TOTAL BILIRUBIN 0.5 mg/dL (<0.1-1.0); TOTAL PROTEIN 6.2 g/dL (6.4-8.2)
[2021-04-17] VITALS (38 sets, daily range): BP systolic 92–135; BP diastolic 52–75
[2021-04-17 13:49] LABS: ABSOLUTE BASOPHILS 0.1 thou/uL (0.0-0.2); ABSOLUTE EOSINOPHILS 0.1 thou/uL (0.0-0.7); ABSOLUTE LYMPHOCYTES 0.4 thou/uL (0.8-5.3); ABSOLUTE MONOCYTES 0.5 thou/uL (0.0-1.2); ABSOLUTE NEUTROPHILS 10.3 thou/uL (1.6-8.1); BASOPHILS 0.5 %; EOSINOPHILS 1.2 %; HEMATOCRIT 28.9 % (37.0-47.0); HEMOGLOBIN 9.6 gm/dL (12.0-15.0); LYMPHOCYTES 3.5 %; MCH 33.3 pg (26.0-34.0); MCHC 33.3 g/dL (28.0-37.0); MCV 100.2 fL (80.0-100.0); MONOCYTES 4.1 %; MPV 8.2 fl. (7.2-11.1); NUCLEATED RBCS 0 /100WBC; PLATELET COUNT* 259 thou/uL (150-400); POLYS 90.7 %; RBC 2.89 mil/uL (4.20-5.00); RDW-CV 19.3 % (10.5-14.5); WBC 11.4 thou/uL (4.0-11.0)
[2021-04-17 13:51] LABS: CALCIUM 8.5 mg/dL (8.5-10.1); CREATININE 0.2 mg/dL (0.6-1.3); MAGNESIUM 1.7 mg/dL (1.8-2.4); POTASSIUM 3.7 mmol/L (3.5-5.1)
[2021-04-17 18:35] LABS: PCO2 VENOUS 45.8 mmHg (41.0-51.0); PO2 VENOUS 69.6 mmHg (35.0-45.0)
[2021-04-18] VITALS (18 sets, daily range): BP systolic 79–145; BP diastolic 42–87
[2021-04-18 04:04] LABS: ABSOLUTE EOSINOPHILS 0.7 thou/uL (0.0-0.7); ABSOLUTE LYMPHOCYTES 1.5 thou/uL (0.8-5.3); ABSOLUTE MONOCYTES 0.9 thou/uL (0.0-1.2); ABSOLUTE NEUTROPHILS 7.4 thou/uL (1.6-8.1); BASOPHILS 0.1 %; EOSINOPHILS 6.8 %; HEMATOCRIT 27.9 % (37.0-47.0); HEMOGLOBIN 9.4 gm/dL (12.0-15.0); LYMPHOCYTES 14.6 %; MCHC 33.6 g/dL (28.0-37.0); MCV 101.2 fL (80.0-100.0); MONOCYTES 8.7 %; MPV 7.9 fl. (7.2-11.1); NUCLEATED RBCS 0 /100WBC; PLATELET COUNT* 249 thou/uL (150-400); POLYS 69.8 %; RBC 2.75 mil/uL (4.20-5.00); RDW-CV 19.2 % (10.5-14.5); WBC 10.6 thou/uL (4.0-11.0)
[2021-04-18 04:27] LABS: ALBUMIN 2.8 g/dL (3.4-5.0); CALCIUM 8.7 mg/dL (8.5-10.1); CREATININE 0.3 mg/dL (0.6-1.3); MAGNESIUM 2.1 mg/dL (1.8-2.4); POTASSIUM 3.5 mmol/L (3.5-5.1); TOTAL BILIRUBIN 0.3 mg/dL (<0.1-1.0); TOTAL PROTEIN 5.6 g/dL (6.4-8.2)
[2021-04-18 11:46] LABS: BE 5.3 mmol/L (-2 to +3); PCO2 VENOUS 49.7 mmHg (41.0-51.0); PO2 VENOUS 56.6 mmHg (35.0-45.0)
[2021-04-18 11:56] LABS: CALCIUM 8.7 mg/dL (8.5-10.1); CREATININE 0.3 mg/dL (0.6-1.3); MAGNESIUM 1.7 mg/dL (1.8-2.4)
[2021-04-19] VITALS (50 sets, daily range): BP systolic 83–133; BP diastolic 43–83
[2021-04-19 05:54] LABS: ALBUMIN 3.2 g/dL (3.4-5.0); CREATININE 0.2 mg/dL (0.6-1.3); POTASSIUM 3.4 mmol/L (3.5-5.1); TOTAL BILIRUBIN 0.5 mg/dL (<0.1-1.0)
[2021-04-20] VITALS (25 sets, daily range): BP systolic 87–131; BP diastolic 45–87
[2021-04-20 04:00] LABS: ABSOLUTE EOSINOPHILS 0.1 thou/uL (0.0-0.7); ABSOLUTE LYMPHOCYTES 1.2 thou/uL (0.8-5.3); ABSOLUTE MONOCYTES 0.8 thou/uL (0.0-1.2); BASOPHILS 0.4 %; EOSINOPHILS 0.5 %; HEMATOCRIT 29.2 % (37.0-47.0); HEMOGLOBIN 9.8 gm/dL (12.0-15.0); LYMPHOCYTES 11.7 %; MCHC 33.7 g/dL (28.0-37.0); MONOCYTES 8.3 %; MPV 7.8 fl. (7.2-11.1); NUCLEATED RBCS 0 /100WBC; PLATELET COUNT* 246 thou/uL (150-400); POLYS 79.1 %; RBC 2.89 mil/uL (4.20-5.00); RDW-CV 19.3 % (10.5-14.5); WBC 10.1 thou/uL (4.0-11.0)
[2021-04-20 04:17] LABS: ALBUMIN 3.1 g/dL (3.4-5.0); CALCIUM 9.1 mg/dL (8.5-10.1); CREATININE 0.3 mg/dL (0.6-1.3); MAGNESIUM 1.9 mg/dL (1.8-2.4); POTASSIUM 4.1 mmol/L (3.5-5.1); TOTAL BILIRUBIN 0.5 mg/dL (<0.1-1.0); TOTAL PROTEIN 6.1 g/dL (6.4-8.2)
[2021-04-21] VITALS (24 sets, daily range): BP systolic 83–164; BP diastolic 49–80
[2021-04-21 05:55] LABS: ABSOLUTE BASOPHILS 0.1 thou/uL (0.0-0.2); ABSOLUTE EOSINOPHILS 0.1 thou/uL (0.0-0.7); ABSOLUTE LYMPHOCYTES 1.3 thou/uL (0.8-5.3); ABSOLUTE MONOCYTES 0.8 thou/uL (0.0-1.2); ABSOLUTE NEUTROPHILS 8.4 thou/uL (1.6-8.1); BASOPHILS 0.7 %; EOSINOPHILS 0.9 %; HEMATOCRIT 29.4 % (37.0-47.0); HEMOGLOBIN 9.7 gm/dL (12.0-15.0); LYMPHOCYTES 12.1 %; MCH 33.6 pg (26.0-34.0); MCHC 32.9 g/dL (28.0-37.0); MCV 102.1 fL (80.0-100.0); MONOCYTES 7.3 %; MPV 7.9 fl. (7.2-11.1); NUCLEATED RBCS 0 /100WBC; PLATELET COUNT* 242 thou/uL (150-400); RBC 2.88 mil/uL (4.20-5.00); RDW-CV 18.7 % (10.5-14.5); WBC 10.6 thou/uL (4.0-11.0)
[2021-04-21 06:20] LABS: ALBUMIN 2.9 g/dL (3.4-5.0); CALCIUM 8.9 mg/dL (8.5-10.1); CREATININE 0.4 mg/dL (0.6-1.3); MAGNESIUM 1.8 mg/dL (1.8-2.4); PHOSPHORUS* 3.6 mg/dL (2.5-4.9); POTASSIUM 3.3 mmol/L (3.5-5.1); TOTAL BILIRUBIN 0.4 mg/dL (<0.1-1.0); TOTAL PROTEIN 5.7 g/dL (6.4-8.2)
[2021-04-21 17:10] LABS: CALCIUM 9.4 mg/dL (8.5-10.1); CREATININE 0.5 mg/dL (0.6-1.3); MAGNESIUM 2.2 mg/dL (1.8-2.4)
[2021-04-21 17:14] LABS: POTASSIUM 4.6 mmol/L (3.5-5.1)
[2021-04-22] VITALS (22 sets, daily range): BP systolic 103–136; BP diastolic 67–88
[2021-04-22 06:01] LABS: ABSOLUTE BASOPHILS 0.1 thou/uL (0.0-0.2); ABSOLUTE EOSINOPHILS 0.1 thou/uL (0.0-0.7); ABSOLUTE LYMPHOCYTES 1.2 thou/uL (0.8-5.3); ABSOLUTE MONOCYTES 1.2 thou/uL (0.0-1.2); ABSOLUTE NEUTROPHILS 11.4 thou/uL (1.6-8.1); BASOPHILS 0.5 %; EOSINOPHILS 0.5 %; HEMATOCRIT 29.8 % (37.0-47.0); HEMOGLOBIN 9.6 gm/dL (12.0-15.0); LYMPHOCYTES 8.7 %; MCH 32.6 pg (26.0-34.0); MCHC 32.3 g/dL (28.0-37.0); MONOCYTES 8.5 %; MPV 8.1 fl. (7.2-11.1); NUCLEATED RBCS 0 /100WBC; PLATELET COUNT* 303 thou/uL (150-400); POLYS 81.8 %; RBC 2.95 mil/uL (4.20-5.00); RDW-CV 18.4 % (10.5-14.5); WBC 13.9 thou/uL (4.0-11.0)
[2021-04-22 06:33] LABS: ALBUMIN 3.7 g/dL (3.4-5.0); CALCIUM 9.2 mg/dL (8.5-10.1); CREATININE 0.3 mg/dL (0.6-1.3); MAGNESIUM 2.1 mg/dL (1.8-2.4); POTASSIUM 4.2 mmol/L (3.5-5.1); TOTAL BILIRUBIN 0.5 mg/dL (<0.1-1.0); TOTAL PROTEIN 5.9 g/dL (6.4-8.2)
[2021-04-23] VITALS (23 sets, daily range): BP systolic 106–142; BP diastolic 66–84
[2021-04-23 06:05] LABS: HEMATOCRIT 30.3 % (37.0-47.0); HEMOGLOBIN 9.8 gm/dL (12.0-15.0); MCH 33.2 pg (26.0-34.0); MCHC 32.5 g/dL (28.0-37.0); MCV 102.2 fL (80.0-100.0); MPV 8.1 fl. (7.2-11.1); RBC 2.96 mil/uL (4.20-5.00); RDW-CV 18.5 % (10.5-14.5); WBC 13.6 thou/uL (4.0-11.0)
[2021-04-23 06:54] LABS: CALCIUM 9.4 mg/dL (8.5-10.1); CREATININE 0.4 mg/dL (0.6-1.3); POTASSIUM 4.2 mmol/L (3.5-5.1)
[2021-04-24] VITALS (21 sets, daily range): BP systolic 106–139; BP diastolic 69–89
[2021-04-24 04:39] LABS: ABSOLUTE MONOCYTES 1.3 thou/uL (0.0-1.2); ABSOLUTE NEUTROPHILS 13.2 thou/uL (1.6-8.1); BASOPHILS 0.2 %; EOSINOPHILS 0.1 %; HEMOGLOBIN 10.9 gm/dL (12.0-15.0); LYMPHOCYTES 6.3 %; MCH 33.5 pg (26.0-34.0); MCHC 33.2 g/dL (28.0-37.0); MCV 100.8 fL (80.0-100.0); MONOCYTES 8.4 %; NUCLEATED RBCS 0 /100WBC; RBC 3.27 mil/uL (4.20-5.00); RDW-CV 18.6 % (10.5-14.5); WBC 15.6 thou/uL (4.0-11.0)
[2021-04-24 04:41] LABS: PLATELET COUNT* 375 thou/uL (150-400)
[2021-04-24 05:01] LABS: ALBUMIN 3.6 g/dL (3.4-5.0); CALCIUM 9.8 mg/dL (8.5-10.1); CREATININE 0.4 mg/dL (0.6-1.3); MAGNESIUM 1.9 mg/dL (1.8-2.4); PHOSPHORUS* 4.8 mg/dL (2.5-4.9); POTASSIUM 4.7 mmol/L (3.5-5.1); TOTAL BILIRUBIN 0.3 mg/dL (<0.1-1.0); TOTAL PROTEIN 6.5 g/dL (6.4-8.2)
[2021-04-25] VITALS (20 sets, daily range): BP systolic 111–147; BP diastolic 66–91
[2021-04-25 05:52] LABS: HEMATOCRIT 34.1 % (37.0-47.0); HEMOGLOBIN 11.1 gm/dL (12.0-15.0); MCHC 32.4 g/dL (28.0-37.0); MCV 101.8 fL (80.0-100.0); MPV 8.2 fl. (7.2-11.1); NUCLEATED RBCS 0 /100WBC; PLATELET COUNT* 312 thou/uL (150-400); RBC 3.35 mil/uL (4.20-5.00); RDW-CV 18.6 % (10.5-14.5); WBC 12.3 thou/uL (4.0-11.0)
[2021-04-25 06:12] LABS: CALCIUM 9.6 mg/dL (8.5-10.1); CREATININE 0.3 mg/dL (0.6-1.3); MAGNESIUM 1.9 mg/dL (1.8-2.4); POTASSIUM 4.3 mmol/L (3.5-5.1)
[2021-04-25 06:50] LABS: ABSOLUTE LYMPHOCYTES 1.1 thou/uL (0.8-5.3); ABSOLUTE MONOCYTES 0.2 thou/uL (0.0-1.2); ABSOLUTE NEUTROPHILS 10.9 thou/uL (1.6-8.1)
[2021-04-25 06:51] LABS: PLATELET ESTIMATE ADEQUATE
[2021-04-25 06:53] LABS: ANISOCYTOSIS 1+; MACROCYTES 1+
[2021-04-26] VITALS (23 sets, daily range): BP systolic 106–145; BP diastolic 61–93
[2021-04-26 06:16] LABS: CALCIUM 9.3 mg/dL (8.5-10.1); CREATININE 0.4 mg/dL (0.6-1.3); POTASSIUM 4.5 mmol/L (3.5-5.1); TOTAL BILIRUBIN 0.3 mg/dL (<0.1-1.0); TOTAL PROTEIN 5.8 g/dL (6.4-8.2)
[2021-04-27] VITALS (17 sets, daily range): BP systolic 120–141; BP diastolic 68–91
[2021-04-27 05:11] LABS: ABSOLUTE EOSINOPHILS 0.1 thou/uL (0.0-0.7); ABSOLUTE LYMPHOCYTES 0.8 thou/uL (0.8-5.3); ABSOLUTE MONOCYTES 0.5 thou/uL (0.0-1.2); ABSOLUTE NEUTROPHILS 8.2 thou/uL (1.6-8.1); BASOPHILS 0.4 %; HEMATOCRIT 34.4 % (37.0-47.0); HEMOGLOBIN 11.3 gm/dL (12.0-15.0); LYMPHOCYTES 8.1 %; MCH 33.9 pg (26.0-34.0); MCHC 32.7 g/dL (28.0-37.0); MCV 103.8 fL (80.0-100.0); MPV 7.7 fl. (7.2-11.1); NUCLEATED RBCS 0 /100WBC; PLATELET COUNT* 264 thou/uL (150-400); POLYS 85.5 %; RBC 3.32 mil/uL (4.20-5.00); RDW-CV 19.1 % (10.5-14.5); WBC 9.6 thou/uL (4.0-11.0)
[2021-04-27 05:28] LABS: ALBUMIN 3.1 g/dL (3.4-5.0); CALCIUM 9.5 mg/dL (8.5-10.1); CREATININE 0.4 mg/dL (0.6-1.3); MAGNESIUM 1.9 mg/dL (1.8-2.4); POTASSIUM 4.6 mmol/L (3.5-5.1); TOTAL BILIRUBIN 0.3 mg/dL (<0.1-1.0); TOTAL PROTEIN 5.7 g/dL (6.4-8.2)
[2021-04-27] MEDS ORDERED: LORAZEPAM 0.50.5 MG PO (14:09)
[2021-04-27] MEDS ORDERED: VFEND200 MG PO (14:09)
[2021-04-27] MEDS ORDERED: ELIQUIS5 MG PO (14:09)
[2021-04-27] MEDS ORDERED: VALTREX 500 MG500 M1 PO (14:09)
[2021-04-27] MEDS ORDERED: DEXAMETHASONE 44 M1 PO (14:09)
[2021-04-27] MEDS ORDERED: IPRAT-ALBUT 0.5-3 ML INH (14:09)
[2021-04-27] MEDS ORDERED: LASIX 40 MG TAB40 M1 PO (15:01)
== END 2021-04-27 16:28 | DRG 207 ==
LOC: M.ERS 06:11 → M.TBA-ER 08:25 → M.ICU 08:25 → M.2W 11:28 → M.ICU 04-01 20:00
PROVIDERS: Internal Medicine; Internal Medicine Critical Care Medicine; Pediatrics; Personal Emergency Response Attendant; ADMIT Internal Medicine; ATTEND Internal Medicine
PROC: 5A09357 Assistance with Respiratory Ventilation, Less than 24 Consecutive Hours, Continuous Positive Airway Pressure (ICD-10-PCS; principal; 2021-03-31)
PROC: 5A0935A Assistance with Respiratory Ventilation, Less than 24 Consecutive Hours, High Flow/Velocity Cannula (ICD-10-PCS; principal; 2021-03-31)
PROC: 5A09357 Assistance with Respiratory Ventilation, Less than 24 Consecutive Hours, Continuous Positive Airway Pressure (ICD-10-PCS; 2021-04-01)
PROC: 5A0935A Assistance with Respiratory Ventilation, Less than 24 Consecutive Hours, High Flow/Velocity Cannula (ICD-10-PCS; 2021-04-01)
PROC: 02HV33Z Insertion of Infusion Device into Superior Vena Cava, Percutaneous Approach (ICD-10-PCS; 2021-04-01)
PROC: 0BH17EZ Insertion of Endotracheal Airway into Trachea, Via Natural or Artificial Opening (ICD-10-PCS; 2021-04-02)
PROC: 5A1955Z Respiratory Ventilation, Greater than 96 Consecutive Hours (ICD-10-PCS; 2021-04-02)
PROC: 5A09357 Assistance with Respiratory Ventilation, Less than 24 Consecutive Hours, Continuous Positive Airway Pressure (ICD-10-PCS; 2021-04-02)
PROC: 5A09357 Assistance with Respiratory Ventilation, Less than 24 Consecutive Hours, Continuous Positive Airway Pressure (ICD-10-PCS; 2021-04-15)
PROC: 5A0935A Assistance with Respiratory Ventilation, Less than 24 Consecutive Hours, High Flow/Velocity Cannula (ICD-10-PCS; 2021-04-16)
PROC: 5A09357 Assistance with Respiratory Ventilation, Less than 24 Consecutive Hours, Continuous Positive Airway Pressure (ICD-10-PCS; 2021-04-16)
PROC: 5A0935A Assistance with Respiratory Ventilation, Less than 24 Consecutive Hours, High Flow/Velocity Cannula (ICD-10-PCS; 2021-04-17)
PROC: 5A0935A Assistance with Respiratory Ventilation, Less than 24 Consecutive Hours, High Flow/Velocity Cannula (ICD-10-PCS; 2021-04-18)
PROC: 5A09357 Assistance with Respiratory Ventilation, Less than 24 Consecutive Hours, Continuous Positive Airway Pressure (ICD-10-PCS; 2021-04-18)
PROC: 5A09357 Assistance with Respiratory Ventilation, Less than 24 Consecutive Hours, Continuous Positive Airway Pressure (ICD-10-PCS; 2021-04-19)
PROC: 5A0935A Assistance with Respiratory Ventilation, Less than 24 Consecutive Hours, High Flow/Velocity Cannula (ICD-10-PCS; 2021-04-19)
PROC: 5A09357 Assistance with Respiratory Ventilation, Less than 24 Consecutive Hours, Continuous Positive Airway Pressure (ICD-10-PCS; 2021-04-20)
PROC: 5A0935A Assistance with Respiratory Ventilation, Less than 24 Consecutive Hours, High Flow/Velocity Cannula (ICD-10-PCS; 2021-04-21)
PROC: 5A09357 Assistance with Respiratory Ventilation, Less than 24 Consecutive Hours, Continuous Positive Airway Pressure (ICD-10-PCS; 2021-04-21)
PROC: 5A09357 Assistance with Respiratory Ventilation, Less than 24 Consecutive Hours, Continuous Positive Airway Pressure (ICD-10-PCS; 2021-04-22)
PROC: 5A0935A Assistance with Respiratory Ventilation, Less than 24 Consecutive Hours, High Flow/Velocity Cannula (ICD-10-PCS; 2021-04-22)
PROC: 5A0935A Assistance with Respiratory Ventilation, Less than 24 Consecutive Hours, High Flow/Velocity Cannula (ICD-10-PCS; 2021-04-23)
PROC: 5A0935A Assistance with Respiratory Ventilation, Less than 24 Consecutive Hours, High Flow/Velocity Cannula (ICD-10-PCS; 2021-04-24)
PROC: 5A0935A Assistance with Respiratory Ventilation, Less than 24 Consecutive Hours, High Flow/Velocity Cannula (ICD-10-PCS; 2021-04-25)
PROC: 5A0935A Assistance with Respiratory Ventilation, Less than 24 Consecutive Hours, High Flow/Velocity Cannula (ICD-10-PCS; 2021-04-26)
PROC: 5A0935A Assistance with Respiratory Ventilation, Less than 24 Consecutive Hours, High Flow/Velocity Cannula (ICD-10-PCS; 2021-04-27)
DX: J96.21 Acute and chronic respiratory failure with hypoxia (principal); I50.33 Acute on chronic diastolic (congestive) heart failure; J18.9 Pneumonia, unspecified organism; B44.9 Aspergillosis, unspecified; J44.1 Chronic obstructive pulmonary disease with (acute) exacerbation; E46 Unspecified protein-calorie malnutrition; I82.A12 Acute embolism and thrombosis of left axillary vein; I82.B12 Acute embolism and thrombosis of left subclavian vein; J44.0 Chronic obstructive pulmonary disease with (acute) lower respiratory infection; E86.0 Dehydration; D64.9 Anemia, unspecified; I95.9 Hypotension, unspecified; E88.09 Other disorders of plasma-protein metabolism, not elsewhere classified; E83.42 Hypomagnesemia; E11.65 Type 2 diabetes mellitus with hyperglycemia; B02.9 Zoster without complications; Z20.822 Contact with and (suspected) exposure to COVID-19; E66.01 Morbid (severe) obesity due to excess calories; Z91.040 Latex allergy status; Z86.718 Personal history of other venous thrombosis and embolism; Z90.710 Acquired absence of both cervix and uterus; Z88.2 Allergy status to sulfonamides; Z88.8 Allergy status to other drugs, medicaments and biological substances; Z68.30 Body mass index [BMI] 30.0-30.9, adult; Z23 Encounter for immunization; Z86.16 Personal history of COVID-19